=== PATIENT | female | born 1930 | race Caucasian/White ===

== ENCOUNTER 2018-09-18 10:31 | Inpatient (IN) | payer MEDICARE, BC ==
[2018-09-18] VITALS (24 sets, daily range): BP systolic 82–124; BP diastolic 36–81; PULSE 63–88; RESP 14–26; Ht 162.6 cm; Wt 72.7 kg
[~2018-09-18] VITALS: Ht 162.6 cm; Wt 72.7 kg
[~2018-09-18 10:31] MED LIST: ASPI-831 PO; CARV3.1260 PO; CLOP75TA28 PO; DOCU-144 PO; DOCU-211 PO; FOLI0.8T2 PO; GLIP5TAB13 PO; HYDR-3498 PO; INSU100C3 SQ; LANT3I SC; NAPR-985 PO; PANT40TA3 PO; SIMV20TA2 PO; SVL800C PO
--- NOTE | 2018-09-18 10:43 | HPN ---
Date/Time of Note Date/Time of Note DATE: 09/18/18 TIME: 10:43 Interval H&P Admission Note Pt. seen H&P reviewed: No system changes MICHELLE CARD MD Sep 18, 2018 10:43
[2018-09-18] MEDS ORDERED: ATOR20TA38 PO (11:11)
[2018-09-18] MEDS ORDERED: DOCU-144 PO (11:12)
[2018-09-18] MEDS ORDERED: PANT40TA4 PO (11:13)
[2018-09-18] MEDS ORDERED: LACT10SO5 PO (11:13)
[2018-09-18] MEDS ORDERED: OMEG-135 PO (11:13)
[2018-09-18] MEDS ORDERED: INSU100I31 SQ (11:14)
[2018-09-18] MEDS ORDERED: FOLI0.8T2 PO (11:14)
--- NOTE | 2018-09-18 13:35 | CONS ---
Date/Time of Note Date/Time of Note DATE: 09/18/18 TIME: 13:26 Assessment/Plan Assessment/Plan Additional Assessment/Plan 88 yo Female with 1)RLE PVD, Recent Rt Toe gangrene S/p Transection, now with plan for BKA by Dr Card 2)ESRD on HD TTS, S/p HD yesterday Pre-op 3)Hyperkalemia, Resolved now 3.9 4) DM with Renal complication, CKD ESRD 5) Anemia, CKD 6) MBD CKD 7) Chronic HTN 8) CAD, CHF Chronic Pt to proceed with BKA, Defer to Anesthesia and Vascular Sx Plan for HD pending OR and Labs tomorrow, or place back on TTS schedule Currently NPO IF diet restarted , Renal ADA diet Check phos Pending H/HCT, [place] with HD Consultation Date/Type/Reason Admit Date/Time Sep 18, 2018 at 10:31 Date of Consultation: Sep 18, 2018 Type of Consult Renal Reason for Consultation ESRD Requesting Provider: MICHELLE CARD MD Hx of Present Illness 88yo Female with Hx of ESRD on HD TTS, NDC, Hx of CAD/PVD, Severe with hx of Rt toe gangrene s/p transection, now scheduled for BKA RLE, Pt with DM with CKD, ESRD, Chronic HTN, LUE AVG, Anemia Chronic disease. Pt only with complaint of RLE pain. NO fever or chills, NO CP or SOB, NO abdominal Pain.. K earlier >6, however repeat wnl. Planned to proceed with Surgery. Discussed case with DR Card. Nephrology consulted for Management of ESRD. Constitutional: no complaints; No requiring O2 Eyes: no complaints ENT: no complaints Respiratory: no complaints Cardiovascular: no complaints Gastrointestinal: no complaints Genitourinary: no complaints Musculoskeletal: bone/joint pain Skin: no complaints Neurologic: no complaints Endocrine: no complaints Lymphatic: no complaints Psychological: no complaints Immunologic: no complaints Past Medical History Medical History: congestive heart failure, coronary artery disease, diabetes, hypertension, renal disease, other (PVD) Allergies: Coded Allergies: heparin (Unverified Adverse Reaction, Unknown, INDUCED THROMBOCYTOPENIA, 09/18/18) Past Surgical History Past Surgical Hx: other (LUE AVF/AVG) Family History Significant Family History: no pertinent family hx Social History Alcohol Use: none Smoking Status: Never smoker Drug Use: none Exam/Review of Systems Vital Signs Vitals Vital Signs Date Temp Pulse Resp B/P (MAP) Pulse Ox O2 O2 Flow FiO2 Time Delivery Rate 09/18/18 98.1 63 16 120/81 96 Room Air 11:35 (94) Exam Constitutional: alert, oriented; No distress Head: normocephalic, atraumatic Eyes: EOMI, PERRL Neck: No jvd Respiratory: clear to auscultation (ant), normal air movement, crackles/rales; No congested cough, No diminished breath sounds, No labored breathing, No wheezing Cardiovascular: regular rate and rhythm; No edema Gastrointestinal: soft, non-tender; No distended, No rebound or guarding Musculoskeletal: other (RLE PVD) Neurological: AUTOMOTIVE WINDOW TINTER II-XII intact, nl mental status, nl speech; No confused, No lethargic Skin: No rash or lesions, No diaphoresis Additional Comments CXR RPTAT: AA IMPRESSION: Mild cardiomegaly. Mild pulmonary vascular congestion. Left lower lobe atelectasis and left pleural effusion. Calcified aorta consistent with atherosclerotic disease. .Bob Schofield MD, MD Date Time Electronically viewed and signed by .Bob Schofield MD, MD on 09/18/2018 11:40 LABS reviewed K 3.9 Repeat LILLIAN ONEIL MD Sep 18, 2018 13:35
--- NOTE | 2018-09-18 13:47 | PREAC ---
Date/Time of Note Date/Time of Note DATE: 09/18/18 TIME: 13:43 Anesthesia Eval and Record Evaluation Time Pre-Procedure Interview DATE: 09/18/18 TIME: 13:43 Age 88 Sex female NPO: 8 hrs Preoperative diagnosis PVD, athetosclerosis of lower extremity Planned procedure BKA Past Medical History Past Medical History: Includes Cardio: HTN, PPM/AICD Endo: Diabetes Pulm: COPD Renal: ESRD on dialysis, HD last: (yesterday) Surgery & Anesthesia Issues No known issue Meds Anticoagulation: Yes (stopped 2 days ago) Beta Peña within 24 hr: No Reason Beta Peña not given: Pt. not on B-Peña Reported Medications Insulin Degludec (Tresiba Flextouch U-100) 100 Unit/1 Ml Insuln.pen, 16 UNIT SQ QAM 09/18/18 Folic Acid/Vitamin B Comp W-C (Renal Multivitamin Tablet) 0.8 Mg Tablet, 0.8 MG PO DAILY, TAB 09/18/18 Pantoprazole* (Pantoprazole*) 40 Mg Tablet.dr, 40 MG PO AC BREAKFAST, TAB 09/18/18 Lactulose* (Lactulose*) 10 Gm/15 Ml Solution, 10 GM PO QPM PRN for CONSTIPATION, ML 09/18/18 [place]-3 Fatty Acids/Fish Oil (Fish Oil 1,000 mg Capsule) 1 Each Capsule, 1 EACH PO BID, CAP 09/18/18 Docusate Sodium* (Colace*) 100 Mg Capsule, 100 MG PO TID PRN for CONSTIPATION, #60 CAP 09/18/18 Atorvastatin Calcium* (Atorvastatin Calcium*) 20 Mg Tablet, 20 MG PO QHS, #30 TAB 09/18/18 Aspirin (Aspirin) 81 Mg Chew, 81 MG PO DAILY, TAB.CHEW 01/06/16 Sevelamer Hcl* (Renagel*) 800 Mg Tablet, 800 MG PO TID 11/12/11 Discontinued Reported Medications Insulin Glargine* (Lantus*) 100 Unit/Ml Soln, 10 UNIT SC DAILY, #1 VIAL 01/06/16 Hydrocodone Bit-Acetaminophen* ([place]*) 5-325 Mg Tab, 1 TAB PO Q6 PRN for PAIN, TAB 01/06/16 Folic Acid/Vitamin B Comp W-C (Renal Multivitamin Tablet) 0.8 Mg Tablet, 0.8 MG PO, TAB 4/8/16 Naproxen* (Naprosyn*) 500 Mg Tablet, 375 MG PO TID, TAB 01/06/16 Docusate Sodium* (Colace*) 100 Mg Capsule, 100 MG PO DAILY, #30 CAP 01/06/16 Clopidogrel Bisulfate (Clopidogrel) 75 Mg Tablet, 75 MG PO DAILY, #30 TAB 01/06/16 Carvedilol* (Carvedilol*) 3.125 Mg Tablet, 3.125 MG PO BID, #60 TAB 01/06/16 Insulin Aspart (Novolog) 100 U/Ml Cartridge, 0 SQ AC MEALS sliding scale 11/12/11 Docusate Sodium (Doc-Q-Lace) 100 Mg Capsule, 100 MG PO DAILY 11/12/11 Glipizide* (Glipizide*) 5 Mg Tablet, 5 MG PO DAILY 11/12/11 Simvastatin (Simvastatin) 20 Mg Tablet, 20 MG PO HS 11/12/11 Meds reviewed: Yes Allergies Coded Allergies: heparin (Unverified Adverse Reaction, Unknown, INDUCED THROMBOCYTOPENIA, 09/18/18) Allergies Reviewed: Yes Labs/Studies Labs Reviewed: Reviewed by anesthesiologist Result Diagram: 09/18/18 1251 Laboratory Tests 09/18/18 11:20 09/18/18 12:51 test: N/A Studies: ECG (paced), CXR (mild cardiomegally, congestion, atelectasis) Pre-procedure Exam Last vitals Vital Signs Date Temp Pulse Resp B/P (MAP) Pulse Ox O2 O2 Flow FiO2 Time Delivery Rate 09/18/18 98.1 63 16 120/81 96 Room Air 11:35 (94) Airway: Adequate mouth opening Mallampati: Mallampati I Teeth: Abnormal Lung: Normal Heart: Normal ASA Physical Status ASA physical status: 3 Emergency: None Planned Anesthetic General/MAC: Mask, MAC, TIVA Nerve block: Femoral (right), Sciatic (right) Planned Pain Management Single shot nerve block, Parenteral pain med Pre-operative Attestations Prior to commencing anesthesia and surgery, the patient was re-evaluated, there was verification of: *The patient's identity *The results of appropriate recent lab work and preoperative vital signs *The above evaluation not changing prior to induction *Anesthetic plan, risk benefits, alternative and complications discussed with patient/family; questions answered; patient/family understands, accepts and wishes to proceed. WESTLEY BAI MD Sep 18, 2018 13:47
[2018-09-18] MEDS ORDERED: LIDOCAINE 2% (SDV) 5 ML INJ ONE (13:57)
[2018-09-18] MEDS ORDERED: ROPIVACAINE 0.5 % 30 ML VIAL ONE (13:58)
[2018-09-18] MEDS ORDERED: ROPIVACAINE 0.2% 20 ML VIAL ONE (13:58)
[2018-09-18] MEDS ORDERED: LABETALOL HCL 20MG INJ IV PRN (14:00)
[2018-09-18] MEDS ORDERED: ONDANSETRON 4 MG INJ IV PRN ×2 (14:00→16:00)
[2018-09-18] MEDS ORDERED: HYDROmorphONE 1 MG/5 ML IV SYRINGE IV PRN ×3 (14:00)
[2018-09-18] MEDS ORDERED: hydrALAzine 20 MG INJ IV PRN (14:00)
[2018-09-18] MEDS ORDERED: DIPHENHYDRAMINE 50 MG INJ IV PRN (14:00)
[2018-09-18] MEDS ORDERED: FENTAnyl 50 MCG/ML VIAL ONE (14:32)
[2018-09-18] MEDS ORDERED: CEFAZOLIN 1 GM INJ ONE ×2 (14:32)
[2018-09-18] MEDS ORDERED: POLYMYXIN/BACITRACIN 1L IRRIG ONE (14:44)
--- NOTE | 2018-09-18 15:23 | SIPON ---
Date/Time of Note Date/Time of Note DATE: 09/18/18 TIME: 15:22 Operative Report Preoperative Diagnosis R foot gangrene Postoperative Diagnosis same Operation/Procedure Performed R BKA Surgeon see signature line home care assistant none Anesthesia: other Estimated blood loss: 10 - 50 ml's Transfusion Required none Specimen R foot Grafts/Implants none Complications none MICHELLE CARD MD Sep 18, 2018 15:22
--- NOTE | 2018-09-18 15:43 | PAC ---
Date/Time of Note Date/Time of Note DATE: 09/18/18 TIME: 15:43 Post-Anesthesia Notes Post-Anesthesia Note Last documented vital signs Vital Signs Date Temp Pulse Resp B/P (MAP) Pulse Ox O2 O2 Flow FiO2 Time Delivery Rate 09/18/18 98.1 63 16 120/81 96 Room Air 11:35 (94) Activity: WNL Respiratory function: WNL Cardiovascular function: WNL Mental status: Baseline Pain reasonably controlled: Yes Hydration appropriate: Yes Nausea/Vomiting absent: No WESTLEY BAI MD Sep 18, 2018 15:43
--- NOTE | 2018-09-18 15:49 | HP ---
Date/Time of Note Date/Time of Note DATE: 09/18/18 TIME: 15:48 Assessment/Plan VTE Prophylaxis Pharmacological prophylaxis: other Lines/Catheters IV Catheter Type (from Nrs): Peripheral IV Assessment/Plan Hospital Course Objective Physical exam General: Patient is laying in bed and answers questions appropriately Mentation: Patient is alert and oriented 4, Head: Normocephalic atraumatic Eyes: EOMI, pupils reactive to light Neck: Supple, nontender, midline Respiratory: Clear to auscultation bilaterally Cardiovascular: regular rate, no obvious murmurs Gastrointestinal: non-tender to palpation, bowel sounds heard. Neurological: Moves all extremities spontaneously Musculoskeletal: Right BKA Assessment and plan Peripheral arterial disease -Status post right BKA -Monitor closely, vascular surgery to manage Insulin-dependent diabetes mellitus -Continue insulin while in house Peripheral arterial disease -Vascular surgery to manage -Continue aspirin starting tomorrow End-stage renal disease -Nephrology consulted, HD as needed Disposition -Monitor overnight, DC when okay with vascular surgery HPI/ROS Admit Date/Time Admit Date/Time Sep 18, 2018 at 10:31 Hx of Present Illness Patient is a 88-year-old female with past medical history significant for end-stage renal disease on hemodialysis, diabetes mellitus, peripheral arterial disease, as well as history of gangrene of the right foot who presents to [facility] for elective right BKA. Patient had uneventful surgery and is doing well we monitor overnight. Patient currently is mildly dr owsy due to anesthesia however is alert and oriented and able to answer simple questions. Patient denies any chest pain, shortness of breath, abdominal pain, headache, nausea, vomiting. Patient does elicit some pain at the surgical site but it is not too uncomfortable ROS Eyes: no complaints ENT: no complaints Respiratory: no complaints Cardiovascular: no complaints Gastrointestinal: no complaints Genitourinary: no complaints Musculoskeletal: bone/joint pain Skin: no complaints Neurologic: no complaints Lymphatic: no complaints Psychological: no complaints Immunologic: no complaints PMH/Family/Social Past Medical History Medical History: congestive heart failure, coronary artery disease, diabetes, hypertension, renal disease, other (PVD) Coded Allergies: heparin (Unverified Adverse Reaction, Unknown, INDUCED THROMBOCYTOPENIA, 09/18/18) Past Surgical History Past Surgical Hx: other (LUE AVF/AVG) Family History Significant Family History: no pertinent family hx Social History Alcohol Use: none Smoking Status: Never smoker Drug Use: none Exam/Review of Systems Vital Signs Vitals Vital Signs Date Temp Pulse Resp B/P (MAP) Pulse Ox O2 O2 Flow FiO2 Time Delivery Rate 09/18/18 98.1 63 16 120/81 96 Room Air 11:35 (94) Medications Medications Current Medications Hydromorphone HCl (Dilaudid) 0.2 mg PACU PRN IV MILD PAIN LEVEL 1-3; Start 09/18/18 at 14:00; Stop 09/18/18 at 18:00 Hydromorphone HCl (Dilaudid) 0.4 mg PACU PRN IV MODERATE PAIN LEVEL 4-6; Start 09/18/18 at 14:00; Stop 09/18/18 at 18:00 Hydromorphone HCl (Dilaudid) 0.6 mg PACU PRN IV SEVERE PAIN LEVEL 7-10; Start 09/18/18 at 14:00; Stop 09/18/18 at 18:00 Ondansetron HCl (Zofran Inj) 4 mg PACU ORDER PRN IV NAUSEA AND/OR VOMITING; Start 09/18/18 at 14:00; Stop 09/18/18 at 18:00 Labetalol HCl (Labetalol) 5 mg PACU ORDER PRN IV ELEVATED BLOOD PRESSURE; Start 09/18/18 at 14:00; Stop 09/18/18 at 18:00 Hydralazine HCl (Apresoline) 5 mg PACU ORDER PRN IV ELEVATED BLOOD PRESSURE; St art 09/18/18 at 14:00; Stop 09/18/18 at 18:00 Diphenhydramine HCl (Benadryl) 25 mg PACU ORDER PRN IV PRURITUS; Start 09/18/18 at 14:00; Stop 09/18/18 at 18:00 IV Flush (NS 3 ml) 3 ml PER PROTOCOL IV ; Start 09/18/18 at 16:00 Ondansetron HCl (Zofran Inj) 4 mg Q6H PRN IV NAUSEA AND/OR VOMITING; Start 09/18/18 at 16:00 Acetaminophen (Tylenol Tab) 650 mg Q6H PRN PO PAIN LEVEL 1-3 OR FEVER; Start 09/18/18 at 16:00 Acetaminophen/ Hydrocodone Bitart ([place] (5/325)) 1 tab Q6H PRN PO PAIN LEVEL 4-6; Start 09/18/18 at 16:00 Morphine Sulfate (morphine) 2 mg Q4H PRN IV PAIN LEVEL 7-10; Start 09/18/18 at 16:00 Atorvastatin Calcium (Lipitor) 20 mg QHS PO ; Start 09/18/18 at 21:00; Status UNV Docusate Sodium (Colace) 100 mg TID PRN PO CONSTIPATION; Start 09/18/18 at 16:00; Status UNV Pantoprazole (Protonix Tab) 40 mg AC BREAKFAST PO ; Start 09/19/18 at 07:00; Status UNV Sevelamer HCl (Renagel) 800 mg TID PO ; Start 09/18/18 at 21:00; Status UNV Results Result Diagram: 09/18/18 1251 Results 24 hrs Laboratory Tests Test 09/18/18 11:20 09/18/18 12:51 09/18/18 15:23 White Blood Count Pending Red Blood Count Pending Hemoglobin Pending Hematocrit Pending Mean Corpuscular Volume Pending Mean Corpuscular Hemoglobin Pending Mean Corpuscular Pending Hemoglobin Concent Red Cell Distribution Width Pending Platelet Count Pending Mean Platelet Volume Pending Sodium Level 140 Potassium Level 6.2 *H 3.9 # Chloride Level 105 Carbon Dioxide Level 27 Anion Gap 8 Blood Urea Nitrogen 10 Creatinine 2.08 H Est Glomerular Filtrat Rate mL/min Glucose Level 88 Bedside Glucose 89 84 Calcium Level 8.6 LEA MORALES Sep 18, 2018 15:49
--- NOTE | 2018-09-18 15:58 | NUR ---
RECEIVED PATIENT FROM OR VIA [facility] POST RIGHT BKA UNDER GENERAL ANESTHESIA. PATIENT AROUSABLE ON ARRIVAL. ON O2 6L VIA FACE MASK SATURATING 100%. SR BP STABLE .DENIES PAIN .DRESSING TO RIGHT BKA INTACT.BLOOD SUGAR CHECK 84 . Addendum: 09/18/18 at 1620 by HIRAM CHAMBERLAIN RN CORRECTION PATIENT EKG 100% V PACE .NOT SR.
[2018-09-18] MEDS ORDERED: HYDROCODONE/APAP (5/325) TAB PO PRN (16:00)
[2018-09-18] MEDS ORDERED: GLUCOSE GEL 15 GRAM TUBE PO PRN (16:00)
[2018-09-18] MEDS ORDERED: morphine 2 MG INJ IV PRN (16:00)
[2018-09-18] MEDS ORDERED: GLUCOSE GEL 15 GRAM TUBE BUCCAL PRN (16:00)
[2018-09-18] MEDS ORDERED: DOCUSATE SODIUM 100 MG CAP PO PRN (16:00)
[2018-09-18] MEDS ORDERED: NACL 0.9% 3 ML SYG IV SCH (16:00)
[2018-09-18] MEDS ORDERED: DEXTROSE 50% 50 ML SYRINGE IV PRN ×2 (16:00)
[2018-09-18] MEDS ORDERED: ACETAMINOPHEN 325 MG TAB PO PRN (16:00)
--- NOTE | 2018-09-18 16:18 | NUR ---
PATIENT NOW FULLY AWAKE JOANN PAIN .DAUGHTER AT BEDSIDE ON ROOM AIR SATURATING 94%. REPOSITIONED TO LEFT SIDE. AV SHUNT TO LEFT ARM PALPABLE.
--- NOTE | 2018-09-18 16:34 | NUR ---
RESTING COMFORTABLY .AWAITING FOR ROOM AVAILABILITY.
--- NOTE | 2018-09-18 17:12 | OPR ---
DATE OF OPERATION: 09/18/2018 PREOPERATIVE DIAGNOSIS: Right foot gangrene. POSTOPERATIVE DIAGNOSIS: Right foot gangrene. PROCEDURE PERFORMED: Right below-knee amputation. SURGEON: Michelle Vanessa MD ANESTHESIA: Regional block. ESTIMATED BLOOD LOSS: 50 mL. COMPLICATIONS: There are no intraprocedural complications. INDICATIONS: This is an 88-year-old woman with diabetes, hypertension, end-stage renal disease, aaron pheral arterial disease. She had a TMA recently that dehisced and this is just gangrenous. We broug ht her in today for a right below knee amputation. She has a palpable popliteal pulse and it should heal well at this level. DESCRIPTION OF PROCEDURE: The patient was brought to the operating room and placed on the table in s upine position. After right femoral and popliteal blocks were placed by anesthesia, the right leg wa s prepped and draped in the usual sterile fashion. I began by marking flaps on the lower leg and mad e an anterior flap 11 cm in length, posterior flap 13 cm in length and incised the skin. Using elect rocautery, I divided the soft tissue at the lower edge of the superior flap and then came across the anterior tibial and peroneal neurovascular bundles, ligated with 2-0 silk ties and divided them. The posterior tibial was occluded. Once I had exposed the tibia and fibula, I transected the fibula hig h up using a bone cutter. The tibia was transected using a bone saw. I then jackknifed the leg and used the long sharp knife to cut the soft tissue away from the backside of the tibia and fibula until I reached the end of the posterior flap and I came across that sharply and then got hemostasis using electrocautery and surgical clips and some 2-0 Vicryl sutures. I then reapproximated the 2 flaps us ing interrupted 2-0 Vicryl sutures in interrupted fashion. I brought the fascia together to cover bone and I then closed the skin incision using surgical jean. Sterile dressing was applied. e patient was transferred to the recovery room in stable condition. She tolerated the procedure well without any complications. Dictated By: MICHELLE NORRIS/SHAAN Conf#: [id number] DID#: [id number] CC: TRIP STEVENS MD; PETE LOZANO DPM; LILLIAN ONEIL MD; DAVE ASHLEY MD;*[facility]*
[2018-09-18] MEDS: INSULIN ASPART [NOVOLOG] 3 ML PEN SC SCH ×2 (18:00→22:51)
--- NOTE | 2018-09-18 18:05 | NUR ---
TRANSFERRED PATIENT TO [facility] VIA HEATHER IN STABLE CONDITION .REPORT GIVEN TO NAVA MORENO Addendum: 09/18/18 at 1807 by HIRAM CHAMBERLAIN RN PLS DISREGARD ABOVE NOTES ERROR .MEANT FOR ANOTHER PATIENT
--- NOTE | 2018-09-18 18:31 | NUR ---
TRANSFERRED TO [facility] VIA RDRUMMOND IN STABLE CONDITION .DRESSING TO RIGHT BKA DRY AND INTACT .REPORT GIVEN TO JOSI MORENO .FAMILY INFORMED.
--- NOTE | 2018-09-18 18:45 | NUR ---
Receiving note: Pt received from PACU, report received from Lul. Pt received with fist sized moist declan red drainage noted on dressing. Drainage area circled with a black marker to note size at that time. Dressing reinforced as per Dr. Vanessa order. Dr. Vanessa aware of drainage at time of pt arrival. Orders received to reinforce dressing. Flaky skin on buttocks and sacrum noted. Healed full thickness noted on inner R buttocks. Cluster rash also noted in this area. Allevyn placed on sacrum and diaper removed. Pictures taken and wound consult placed. Endorsed to night nurse. BP in PACU was 124/45. BP upon unit arrival was 98/51. Pt O2 sat >94% on 2L. Pt resting comfortably in bed, denies pain bed alarm on. Family present at bedside.
[2018-09-18] MEDS ORDERED: SEVELAMER 800 MG TAB PO SCH (21:00)
[2018-09-18] MEDS: ATORVASTATIN 20 MG TAB PO SCH (21:21)
[2018-09-18] MEDS: SEVELAMER CARBONATE 800 MG TABLET PO SCH (21:45)
[2018-09-18] MEDS: ACCU-CHEK XX SCH (22:53)
--- NOTE | 2018-09-19 05:32 | NUR ---
EOSS PATIENT RESTED OFF AND ON. MEDICATED FOR PAIN X 1, AND WAS RELIEVED. NO S/S OF DISTRESS NOTED. REPOSITIONED Q 2 AND PRN TOLERATED. DRESSING TO RIGHT LEG NOTED WITH BLOOD STAIN THIS MORNING AROUND 0330. CIRCLED AND WILL CONTINUE TO MONITOR. OF THIS TIME. NO MORE DRAINAGE NOTED. ELEVATED ON PILLOW. NO HYPERGLYCEMIA OR HYPOGLYCEMIA NOTED. EDUCATED ON GLUCOSE TESTING TIMES, AND HS SNACK. OFFERED PATIENT A SNACK AT TIME OF GLUCOSE CHECK, BUT PATIENT STATED "MAYBE A LITTLE LATER". WHEN I RETURNED A LITTLE LATER PATIENT WAS ASLEEP. EASY TO WAKE UP BUT CONTINUED TO DECLINED SNACK. AROUND 0000 PATIENT NOTED TO BE NAUSEATED. OFFERED ANTI NAUSEA MEDICATION. PATIENT DECLINED. OBSERVED EMESIS OF 50 ML WITH LOTS OF AIR. STATED THAT SHE "FELT BETTER". PATIENT ALSO NOTED TO BE SWEATING AT THIS TIME. BLOOD GLUCOSE RECHECKED AT THIS TIME. WNL. VITALS WITHIN BASELINE. NO TEMPERATURE OBSERVED. EXTRA BLANKETS REMOVED. KEPT CLEAN AND DRY. CALL LIGHT IN EASY REACH. WILL CONTINUE TO MONITOR.
[2018-09-19] MEDS: PANTOPRAZOLE (EC) 40 MG TAB PO SCH (06:08)
[2018-09-19 07:40] VITALS: BP 88/44; PULSE 80; RESP 16
[2018-09-19 08:31] VITALS: BP 89/44; PULSE 81; RESP 16
[2018-09-19] MEDS: INSULIN GLARGINE [LANTus] (100 UNITS/ML) SYG SC SCH (08:58)
[2018-09-19] MEDS: ASPIRIN 81 MG TAB PO SCH (09:02)
[2018-09-19] MEDS: SEVELAMER CARBONATE 800 MG TABLET PO SCH ×3 (09:03→22:03)
[2018-09-19] MEDS: INSULIN ASPART [NOVOLOG] 3 ML PEN SC SCH ×4 (09:05→21:00)
--- NOTE | 2018-09-19 10:47 | NUR ---
WOUND CONSULT: 88 year old female s/p right BKA by Dr. Vanessa on 09/18/18. History of end-stage renal disease on hemodialysis, diabetes mellitus, peripheral arterial disease, gangrene of the right foot per medical history. WBC 6.7. H&H 9.6/32.9. Plt 103. Albumin 2.5. Patient awake, alert. Nasal cannula. Moderate assist to turn. Incontinent. ASSESSMENT: - Right BKA wrap with Kerlix. Dressing intact with bleeding drainage. - Left heel dry peeling skin. - Left groin puncture wound possible from angio procedure. 0.2cmx0.2cmx0.9cm. Unable to assess base of wound. Periwound intact. Small serosanguineous drainage. No odor. - Abdominal fold moisture related skin damage. - Sacrococcyx intact deep tissue pressure injury. Condition present on admission. [id number]. Maroon discoloration. No drainage. No odor. There is a pinkish resurfaced scar tissue area to the Right buttock area. Possible healing full thickness pressure injury. RECOMMENDATIONS: - Left heel: Apply moisturizer daily. Float heel off bed with pillow. - Left groin puncture wound: Cleanse with normal saline. Pat dry. Cover wound with Silver Alginate (Melgisorb) dressing. and Cover with foam border dressing. Change every other day. - Abdominal fold: Cleanse with foam cleanser. Pat dry. Dust with Nystatin powder BID. - Sacrococcyx DTPI: Cleanse with normal saline. Pat dry. Apply Venelex ointment BID. Then, cover with foam border dressing. - Pericare with barrier cream for each incontinent episode. - Low air loss surface. - Reposition every 2 hours. - Earmates foam furniture technician for nasal cannula for ear protection. Assessed patient with RNIvy. Discussed plan of care with RN. RN to obtwin wound care recommendations from . Beverley Mahan BSN RN CWOCN
--- NOTE | 2018-09-19 12:00 | NUR ---
Dressing change done as per MD order. Xerform on incision site. Rach in place. Dry gauze, kerlix wrap, and SENTHIL wrap applied. Pain meds given. Pt. tolerated dressing change well.
[2018-09-19] MEDS: morphine LIQ (10 MG/5 ML) CUP PO PRN ×2 (12:41→17:51)
--- NOTE | 2018-09-19 12:49 | PN ---
Date/Time of Note Date/Time of Note DATE: 09/19/18 TIME: 12:46 Assessment/Plan Lines/Catheters IV Catheter Type (from Nrsg): Saline Lock Assessment/Plan Assessment/Plan Doing well s/p R BKA HD per Dr. Albert I asked the nurse to rewrap the stump and place an SENTHIL wrap OK for d/c from my standpoint Followup with me in the APC in one week, dressing doesn't need changed until then Subjective 24 Hr Interval Summary No pain, eating OK. No CP / SOB. Exam/Review of Systems Vital Signs Vitals Vital Signs Date Temp Pulse Resp B/P (MAP) Pulse Ox O2 O2 Flow FiO2 Time Delivery Rate 09/19/18 98.2 81 16 89/44 (59) 95 08:31 09/18/18 Nasal 2.0 19:43 Cannula Intake and Output 09/18/18 09/18/18 09/19/18 1515:00 23:00 07:00 IntakeIntake Total 220 ml OutputOutput Total 20 ml BalanceBalance 200 ml Exam Free Text/Dictation R BKA stump clean and dry, minor skin edge oozing overnight - stopped, flaps are warm and no signs of ischemia or infection L arm AVF with good thrill Results Result Diagram: 09/19/18 0429 09/19/18 0429 MICHELLE CARD MD Sep 19, 2018 12:49
[2018-09-19] MEDS: POLYETHYLENE GLYCOL 17 GM PACKET PO SCH ×2 (13:00→21:00)
[2018-09-19] MEDS ORDERED: BISACODYL 10 MG SUPP PR PRN (13:00)
[2018-09-19] MEDS ORDERED: BISACODYL (EC) 5 MG TAB PO ONE (13:00)
--- NOTE | 2018-09-19 13:00 | NUR ---
Tone: Dialysis called and confirmed appointment for tomorrow. Pt. and family made aware. Confirmation # [id number].
--- NOTE | 2018-09-19 13:01 | CONS ---
Date/Time of Note Date/Time of Note DATE: 09/19/18 TIME: 12:59 Assessment/Plan Assessment/Plan Chief Complaint/Hosp Course \88 yo Female with 1)RLE PVD, Recent Rt Toe gangrene S/p Transection, S/p BKA POD #1 2)ESRD on HD TTS, S/p HD yesterday Pre-op 3)Hyperkalemia, Resolved now 3.9 4) DM with Renal complication, CKD ESRD 5) Anemia, CKD 6) MBD CKD 7) Chronic HTN 8) CAD, CHF Chronic HD plan for tomorrow Resume TTS schedule EPO with HD tomorrow. Consultation Date/Type/Reason Admit Date/Time Sep 18, 2018 at 10:31 Initial Consult Date 09/18/18 Type of Consult Renal Requesting Provider: MICHELLE CARD MD 24 HR Interval Summary Free Text/Dictation S/p OR, S/p BKA, Pain improved, Last HD saturday. Constitutional: requiring O2 Exam/Review of Systems Vital Signs Vitals Vital Signs Date Temp Pulse Resp B/P (MAP) Pulse Ox O2 O2 Flow FiO2 Time Delivery Rate 09/19/18 98.2 81 16 89/44 (59) 95 08:31 09/18/18 Nasal 2.0 19:43 Cannula Intake and Output 09/18/18 09/18/18 09/19/18 1515:00 23:00 07:00 IntakeIntake Total 220 ml OutputOutput Total 20 ml BalanceBalance 200 ml Exam Constitutional: No distress Head: atraumatic Eyes: nl conjunctiva, EOMI Neck: No jvd Respiratory: No diminished breath sounds, No labored breathing Cardiovascular: regular rate and rhythm; No edema Gastrointestinal: soft, non-tender; No mass, No rebound or guarding Musculoskeletal: other (BKA LEFT) Extremities: No pitting pedal edema Neurological: No lethargic Skin: No diaphoresis LILLIAN ONEIL MD Sep 19, 2018 13:01
--- NOTE | 2018-09-19 14:05 | PN ---
Date/Time of Note Date/Time of Note DATE: 09/19/18 TIME: 14:03 Assessment/Plan VTE Prophylaxis Risk score (from Ns)>0 risk: 9 SCD applied (from Ns): Yes SCD contraindicated: bilateral LE trauma, bilateral amputee Pharmacological prophylaxis: NA/contraindicated Pharm contraindication: surgical contra Lines/Catheters [facility] Saline Lock Assessment/Plan Hospital Course Assessment and plan 1. Right foot gangrene status post BKA, stable treat pain 2. Chronic PAD 3. ESRD dialysis Saturday 4. Failure to thrive may need sniff continue wound care; PT if okay with vascular 5. Diabetes 6. Hypertension 7. Anemia 8. Constipation 9. Thrombocytopenia 10. Pacemaker? 11. Coronary artery disease? 12. CHF? 13. Sm; check echo Subjective: Mild to moderate pain. No dyspnea chest pain. Spirits okay. Objective: Vital signs stable bundle branch block? Physical exam No pallor/ jvd adenopathy Reg +sm' no r/g Clear Benign no abdominal bruits Rt BKA status stable; Diabetic neuropathy? Exam/Review of Systems Vital Signs Vitals Vital Signs Date Temp Pulse Resp B/P (MAP) Pulse Ox O2 O2 Flow FiO2 Time Delivery Rate 09/19/18 98.2 81 16 89/44 (59) 95 08:31 09/18/18 Nasal 2.0 19:43 Cannula Intake and Output 09/18/18 09/18/18 09/19/18 1515:00 23:00 07:00 IntakeIntake Total 220 ml OutputOutput Total 20 ml BalanceBalance 200 ml LOU RAMÍREZ MD Sep 19, 2018 14:05
[2018-09-19 15:02] VITALS: BP 91/45; PULSE 76; RESP 16
--- NOTE | 2018-09-19 15:33 | NUR ---
Nutrition consult: Pt's family noted that pt unable to eat her meal today because it was too solid. Pt currently on renal, carb controlled, regular texture. Pt is missing teeth and having trouble chewing her food. Pt liked the cream of wheat/oatmeal in the morning but wasn't able to eat/chew any other foods. Pt family requested downgrading diet to puree. Will continue to monitor.
--- NOTE | 2018-09-19 19:00 | NUR ---
EOSS: Pt. AAAo x 4. [place] speaking. Vitals stable. Family at bedside. Accucheks done and insulin coverage given. Morphine given for pain. Amputated stump - dressing change done and skin intact. Pt. has no other concerns at this time. Bed in low position, call light within reach. Plan of care endorsed to next shift.
[2018-09-19 19:20] VITALS: BP 95/46; PULSE 73; RESP 20
[2018-09-19] MEDS: ATORVASTATIN 20 MG TAB PO SCH (22:02)
[2018-09-19] MEDS: GABAPENTIN 100 MG CAP PO SCH (22:02)
[2018-09-19] MEDS: SENNA/DOCUSATE NA (8.6MG/50MG) TAB PO SCH (22:03)
[2018-09-19] MEDS: HYDROCODONE/APAP (10/325) TAB PO PRN (22:09)
[2018-09-20] MEDS: ACCU-CHEK XX SCH (02:00)
[2018-09-20 02:20] VITALS: BP 107/51; PULSE 65
[2018-09-20] MEDS: INSULIN ASPART [NOVOLOG] 3 ML PEN SC SCH ×4 (07:50→21:00)
[2018-09-20 07:57] VITALS: BP 88/49; PULSE 71; RESP 16
[2018-09-20] MEDS: PANTOPRAZOLE (EC) 40 MG TAB PO SCH (08:23)
[2018-09-20] MEDS: ASPIRIN 81 MG TAB PO SCH (08:23)
[2018-09-20] MEDS: SEVELAMER CARBONATE 800 MG TABLET PO SCH ×3 (08:23→21:00)
[2018-09-20] MEDS: POLYETHYLENE GLYCOL 17 GM PACKET PO SCH ×2 (08:23→21:00)
[2018-09-20] MEDS: INSULIN GLARGINE [LANTus] (100 UNITS/ML) SYG SC SCH (08:27)
--- NOTE | 2018-09-20 08:45 | NUR ---
PT Evaluation attempted. However pt BP 91/52 supine in bed and RN requested that PT hold until SBP over 100. Will reattempt later as PT schedule and pt's BP allows.
[2018-09-20 09:00] VITALS: BP 91/52
[2018-09-20] MEDS: NYSTATIN 30 GM POWDER BTL TOP SCH ×2 (14:00→21:00)
[2018-09-20] MEDS: BALSAM PERU/CASTOR OIL 60 GM TUBE TOP SCH ×2 (14:00→21:00)
--- NOTE | 2018-09-20 14:00 | NUR ---
PT Evaluation attempted again. However pt refused, with family at bedside, despite max encouragement from the PT. Collected subjective information: family reports pt has not walked for 2 months following a fall and resulting back and hip pain. Educated the family on importance of PT and positioning for RLE. BP supine: 96/46 at start, 81/43 at end of attempted eval.
[2018-09-20 15:22] VITALS: BP 109/54; PULSE 67; RESP 16
[2018-09-20] MEDS: HYDROCODONE/APAP (10/325) TAB PO PRN (15:50)
--- NOTE | 2018-09-20 16:41 | PN ---
Date/Time of Note Date/Time of Note DATE: 09/20/18 TIME: 16:38 Assessment/Plan VTE Prophylaxis Risk score (from Nsg)>0 risk: 8 SCD applied (from Ns): Yes SCD contraindicated: bilateral LE trauma Pharmacological prophylaxis: LMWH Lines/Catheters IV Catheter Type (from Nrs): Saline Lock Assessment/Plan Hospital Course Assessment and plan 1. Right foot gangrene, status post BKA, stable treat pain 2. Chronic PAD, stable restart aspirin if no bleeding 3. ESRD dialysis Saturday 4. Failure to thrive may need snf'; continue wound care; PT if ok with vascular 5. Diabetes 6. Hypertension 7. Anemia 8. Constipation 9. Thrombocytopenia 10. Pacemaker? 11. Coronary artery disease? 12. CHF? 13. Sm; check echo S: 09/19 mild to moderate pain. No dyspnea chest pain. Spirits okay. 09/20: Mod pain, unable to ambulate with PT. I reinforced the need to medicate prior to PT. Unfortunately the patient has not walked in 2 mnths. High risk of further debility/ decline in health. may need snf. high risk of ulcers pneumonia and functional quadriplegia, recommend advanced care planning be reevaluated/consider palliative care. O: Vital signs stable, bbb Physical exam No pallor/ jvd Reg +sm' no r/g Clear Benign nontender nondistended no RRG; no abdominal bruits Rt BKA status stable; Diabetic neuropathy? Exam/Review of Systems Vital Signs Vitals Vital Signs Date Temp Pulse Resp B/P (MAP) Pulse Ox O2 O2 Flow FiO2 Time Delivery Rate 09/20/18 97.8 67 16 109/54 100 15:22 (72) 09/20/18 Nasal 2.0 08:00 Cannula Intake and Output 09/19/18 09/19/18 09/20/18 1515:00 23:00 07:00 IntakeIntake Total 300 ml 200 ml BalanceBalance 300 ml 200 ml LOU RAMÍREZ MD Sep 20, 2018 16:41
--- NOTE | 2018-09-20 17:26 | RADRPT ---
Echocardiogram Report Patient Name: DARIAN MCCALL Gender: Female Date: 1930 Study Date: 19-Sep-2018 Event Marketing Coordinator: Luis Eduardo [facility] Location: 429-A Ref. Physician: LOU RAMÍREZ Quality: Adequate Procedures: Transthoracic echocardiogram with complete 2D, M-Mode, and doppler examination. Indications: Systolic murmur. 2D/M Mode Doppler Measurement Value Normal Ranges Measurement Value Normal Ranges LVIDd 2D 3.5 3.5 - 5.6 cm ROCKY Vmax 1.1 cm2 LVIDs 2D 2.3 2.1 - 4.1 cm ROCKY VTI 1.2 cm2 FS 2D 33.9 % AV Mean Ren 1.8 m/sec LVPWd 2D 1.1 0.6 - 1.1 cm AV Mean PG 15.0 mmHg IVSd 2D 1.8 0.6 - 1.1 cm AV Peak Ren 2.5 m/sec IVS/LVPW 2D 1.7 AV Peak PG 25.0 mmHg AoR Diam 2D 2.0 2.0 - 3.7 cm AV VTI 56.3 cm LA/Ao 2D 2 0 - 1 LVOT Peak Ren 0.9 m/sec EDV 2D 41.1 cm3 LVOT Peak PG 3.0 mmHg ESV 2D 11.9 cm3 MV E Peak Ren 1.2 m/sec LA Dimen 2D 4.3 2.3 - 4.0 cm MV A Peak Ren 1.8 m/sec LVOT Area 3.1 cm2 MV E/A 0.7 MV Peak Ren 2.3 m/sec MV Peak PG 20.0 mmHg MV Mean Ren 1.3 m/sec MV Mean PG 8.0 mmHg MV Decel Time 268 msec MV E/A 0.7 MV VTI 67.4 cm MVA VTI 1.0 cm TR Peak Ren 4.5 m/sec TR Peak PG 82.0 mmHg RVSP 85.0 mmHg Findings Left Ventricle: Normal left ventricular systolic function. Normal left ventricular cavity size. Moderate concentric left ventricular hypertrophy. Ejection fraction is visually estimated at 55 %. Tissue Doppler/Mitral Doppler indices are consistent with impaired relaxation (Stage I diastolic dysfunction). Right Ventricle: Normal right ventricular systolic function. Moderate enlargement of right ventricle. Left Atrium: There is moderate enlargement of left atrium. Right Atrium: The right atrium is normal in size. Mitral Valve: Moderate mitral leaflet calcification. Moderate mitral annular calcification. Mild mitral valve regurgitation. Moderate mitral stenosis. Mitral valve Max Velocity 2.25 m/sec. MaxPG 20.00 mmHg. MeanPG 8.00 mmHg. Aortic Valve: Mild to moderate aortic stenosis. Aortic valve Max velocity 2.48 m/sec. Max PG 25.00 mmHg. Mean PG 15.00 mmHg. Aortic valve area 1.22 cm2. Aortic cusps appear moderately calcified. Trace aortic valve regurgitation. Tricuspid Valve: Normal appearance of the tricuspid valve. Estimated peak PA systolic pressure 85 mmHg. There is mild to moderate tricuspid regurgitation. Pulmonic Valve: Pulmonic valve not well visualized. There is mild pulmonic regurgitation. Pericardium: Normal pericardium with no significant pericardial effusion. Left pleural effusion seen. Aorta: Normal aortic root. IVC: Normal size and normal respiratory collapse consistent with normal right atrial pressure. Conclusions The left ventricle is normal in size and systolic function. Estimated left ventricular ejection fraction of 55%. Moderate concentric left ventricular hypertrophy. Grade 1 diastolic dysfunction. Moderate mitral stenosis. Mild to moderate aortic stenosis. Moderate left atrial enlargement. Severe pulmonary hypertension with estimated RVSP of 85 mmHg. Electronically Signed By: Phil Graves 20-Sep-2018 17:25:38 -0800 Patient Name: DARIAN MCCALL Study Date: 19-Sep-2018 [id number]
[2018-09-20] MEDS: GLUCAGON 1 MG INJ IM PRN (18:48)
--- NOTE | 2018-09-20 19:03 | CONS ---
Date/Time of Note Date/Time of Note DATE: 09/20/18 TIME: 19:01 Assessment/Plan Assessment/Plan Chief Complaint/Hosp Course 88 yo Female with 1)RLE PVD, Recent Rt Toe gangrene S/p Transection, S/p BKA POD #1 2)ESRD on HD TTS, S/p HD yesterday Pre-op 3)Hyperkalemia, Resolved now 3.9 4) DM with Renal complication, CKD ESRD 5) Anemia, CKD 6) MBD CKD 7) Chronic HTN 8) CAD, CHF Chronic Held HD today due to BP HD plan for tomorrow BP improved Repeat labs in am monitor [facility] Consultation Date/Type/Reason Admit Date/Time Sep 18, 2018 at 10:31 Initial Consult Date 09/18/18 Type of Consult Renal Requesting Provider: MICHELLE CARD MD 24 HR Interval Summary Free Text/Dictation Low BP, HD held. Exam/Review of Systems Vital Signs Vitals Vital Signs Date Temp Pulse Resp B/P (MAP) Pulse Ox O2 O2 Flow FiO2 Time Delivery Rate 09/20/18 97.8 67 16 109/54 100 15:22 (72) 09/20/18 Nasal 2.0 08:00 Cannula Intake and Output 09/19/18 09/19/18 09/20/18 1515:00 23:00 07:00 IntakeIntake Total 300 ml 200 ml BalanceBalance 300 ml 200 ml Exam Constitutional: frail; No distress Eyes: EOMI Neck: No jvd Respiratory: crackles/rales; No diminished breath sounds, No labored breathing Cardiovascular: regular rate and rhythm; No edema Gastrointestinal: soft, non-tender Musculoskeletal: other (BKA) Neurological: No lethargic LILLIAN ONEIL MD Sep 20, 2018 19:03
[2018-09-20 19:20] VITALS: BP 106/51; PULSE 71; RESP 20
[2018-09-20] MEDS: GLUCOSE GEL 15 GRAM TUBE PO PRN (19:20)
--- NOTE | 2018-09-20 20:07 | NUR ---
END OF SHIFT NOTE: Patient had low bp in the AM; I paged hospitalist and ordered to give NS bolus 500ml; clarified order with cover assembler who stated to hold bolus. He stated to re-check BP; I had already reposition patient prior and had CREDIT ANALYST re-check; and reported new BP to cover assembler with no order to intervene. Patient was slightly lethargic throughout shift with improvement in the afternoon, but able to verbalize her needs. Patient accuchecked B 86, L 85, D 56. I started hypoglycemic management. I attempted oral route, but out of stock of oral gel; placed call to pharmacy. Rechecked BS 51; Assessed IV site and was not functional; Shellie fischer RN aware and attempted IV, but unsuccessful. I gave IM Glucagon and rechecked BS 60; I attempted to give another dose, but out of stock in [employer]; Nabeel MORENO night charge went to pharmacy and we gave one dose glucose gel. Rechecked sugar BS 70; nightshift RN aware of situation and will continue to address blood sugar level; I paged and tried calling primary MD with no response, paged hospitalist nahed able to get a response, but no new orders. Patient dressing on amputation site in intact with no drainage and no orders to perform wound care. Shellie Fischer RN facilitated new wound care orders per wound care nurse. Patient medicated for pain with norco 10/325. Patient transfer to low air loss mattress. No other events noted.
[2018-09-20] MEDS: SENNA/DOCUSATE NA (8.6MG/50MG) TAB PO SCH (21:00)
[2018-09-20] MEDS: ATORVASTATIN 20 MG TAB PO SCH (21:00)
[2018-09-20] MEDS: GABAPENTIN 100 MG CAP PO SCH (21:00)
--- NOTE | 2018-09-20 23:08 | NUR ---
Rk Dialysis Confirmation Number [id number]
[2018-09-21] VITALS (18 sets, daily range): BP systolic 99–131; BP diastolic 46–67; PULSE 62–66; RESP 18–20
[2018-09-21] MEDS: HYDROCODONE/APAP (10/325) TAB PO PRN ×2 (00:01→08:45)
[2018-09-21] MEDS: ACCU-CHEK XX SCH (00:53)
--- NOTE | 2018-09-21 06:44 | NUR ---
Shift Summary Pt's hypoglycemia resolved during shift after patient was given glucose gel and apple juice. Pt treated once for pain in right leg. Pt refused all evening medications. Will endorse care to next shift.
--- NOTE | 2018-09-21 07:30 | NUR ---
PT RECEIVED WITHOUT ANY IV ACCESS. TOLD BY [facility] THAT THERE IS NO IV ACCESS. SHREDDED FILLER MACHINE WRAPPER LAYER MARTELL FROM THE [facility] SAID: NOBODY COULD GET AN IV ACCESS ON THE PT, EVEN TECHNOLOGY INFUSION SPECIALIST.
[2018-09-21] MEDS: INSULIN ASPART [NOVOLOG] 3 ML PEN SC SCH ×4 (07:50→20:59)
[2018-09-21] MEDS ORDERED: INSULIN GLARGINE [LANTus] (100 UNITS/ML) SYG SC SCH (08:00)
--- NOTE | 2018-09-21 08:00 | NUR ---
PT RECEIVED IN BED. A,A,OX3. NOT IN ANY ACUTE DISTRESS. DENIES ANY PAIN AT THIS TIME. THE PLAN OF CARE DISCUSSED W/ THE PT, VERBALIZED UNDERSTANDING. CALL LIGHT IN REACH. PT ENCOURAGED TO CALL FOR ASSISTANCE. WILL CONT. MONITORING. WILL CONT. W/ THE PLAN OF CARE.
--- NOTE | 2018-09-21 08:28 | NUR ---
CBS=65. PT IS A,A,OX3. APPLE JUICE WAS GIVEN AND PT IS EATING HER BREAKFAST AT THIS TIME. WILL RECHECK IN 15 MIN. PT IS ASYMPTOMATIC. WILL CONT. MONITORING.
[2018-09-21] MEDS: PANTOPRAZOLE (EC) 40 MG TAB PO SCH (08:38)
[2018-09-21] MEDS: POLYETHYLENE GLYCOL 17 GM PACKET PO SCH (08:39)
[2018-09-21] MEDS: ASPIRIN (EC) 81 MG TAB PO SCH (08:39)
[2018-09-21] MEDS: BALSAM PERU/CASTOR OIL 60 GM TUBE TOP SCH ×2 (08:39→21:00)
[2018-09-21] MEDS: SEVELAMER CARBONATE 800 MG TABLET PO SCH ×2 (08:39→13:17)
--- NOTE | 2018-09-21 08:43 | CONS ---
Date/Time of Note Date/Time of Note DATE: 09/21/18 TIME: 08:42 Assessment/Plan Assessment/Plan Chief Complaint/Hosp Course 88 yo Female with 1)RLE PVD, Recent Rt Toe gangrene S/p Transection, S/p BKA POD #1 2)ESRD on HD TTS, S/p HD yesterday Pre-op 3)Hyperkalemia, Resolved now 3.9 4) DM with Renal complication, CKD ESRD 5) Anemia, CKD 6) MBD CKD 7) Chronic HTN 8) CAD, CHF Chronic HD plan for today BP improved Repeat labs in am monitor [facility] Consultation Date/Type/Reason Admit Date/Time Sep 18, 2018 at 10:31 Initial Consult Date 09/18/18 Type of Consult Renal Requesting Provider: MICHELLE CARD MD 24 HR Interval Summary Constitutional: requiring O2 Exam/Review of Systems Vital Signs Vitals Vital Signs Date Temp Pulse Resp B/P (MAP) Pulse Ox O2 O2 Flow FiO2 Time Delivery Rate 09/21/18 98.6 66 18 112/51 98 Nasal 07:15 (71) Cannula 09/20/18 2.0 20:00 Exam Constitutional: frail; No distress ENMT: mucosa pink and moist Respiratory: No diminished breath sounds, No labored breathing Cardiovascular: No edema Gastrointestinal: soft Extremities: No edema Neurological: lethargic LILLIAN ONEIL MD Sep 21, 2018 08:43
--- NOTE | 2018-09-21 08:47 | NUR ---
CBS=65. PT IS ASYMPTOMATIC . APPLE JUICE GIVEN AND PT IS STILL EATING HER BREAKFAST AT THIS TIME. WILL RECHECK IN 15 MIN AND CONT. MONITORING.
[2018-09-21] MEDS: NYSTATIN 30 GM POWDER BTL TOP SCH ×2 (08:48→21:00)
[2018-09-21] MEDS: GLUCOSE GEL 15 GRAM TUBE PO PRN (08:51)
--- NOTE | 2018-09-21 08:51 | NUR ---
PT WAS GIVEN ORAL GLUCOSE PER ORDER. PT HAS NO IV ACCESS. WILL CONT. MONITORING.
--- NOTE | 2018-09-21 09:14 | NUR ---
CBS=65. UNABLE TO GIVE IM GLUCOSE INJECTION DUE TO STERIL WATER FOR INJECTIONS NOT AVAILABLE FROM PHARMACY FOR RECONSTITUTION. CALLED PHARMACY TO ORDER STERIL WATER. PT WAS GIVEN APPLE JUICE AND SHE CONTINUES EATING HER BREAKFAST AT THIS TIME.
[2018-09-21] MEDS: GLUCAGON 1 MG INJ IM PRN (09:18)
--- NOTE | 2018-09-21 09:28 | NUR ---
CBS=79. PT IS ASYMPTOMATIC. WILL CONT. MONITORING.
--- NOTE | 2018-09-21 09:50 | NUR ---
CBS=84. NO DISTRESS. PT IS RESTING COMFORTABLY. WILL CONT. MONITORING CLOSELY.
--- NOTE | 2018-09-21 10:41 | NUR ---
CBS=95. NO CHANGES IN CONDITION. NO DISTRESS. WILL CONT. MONITORING.
--- NOTE | 2018-09-21 11:28 | NUR ---
Bedside swallowing evaluation completed: Patient is an 88 y/o female who is s/p BKA with hx of right foot gangrene being treated on med surg. floor. Med hx is also significant for chronic PAD, ESRD w/ dialysis, failure to thrive, diabetes, HTN, anemia, constipation, and thrombocytopenia. Med hx also questionable for pacemaker, CAD, and CHF. Patient was referred to for swallowing evaluation for possible dysphagia. On admission patient was placed on a regular diet with thin liquids. Med records revealed she was then changed to puree/ ntl and then [facility] soft / ntl. Per pt and family interview, patient was tolerating a diet of soft solids/ thin liquids at home. Impacted by only partial remaining natural dentition and no dentures. Oral [facility]: oral motor strength is wfl for age. hyolaryngeal excursion is wfl for age. Mild reduced coordination of alternating movements trials: thin liquids via spoon, cup and straw, pureed solids, soft solids, reg solids - limited trials accepted 2/2 red. activity tolerance sitting upright d/t leg pain Increased time for mastication of soft and regular solids. Difficult for patient to fully masticate reg solids 2/2 missing teeth. Benefitted from liquid wash to clear residue of reg. solids from oral cavity. Prolonged bolus hold and incr. time required to initiate a/p transit across consistencies. Suspect mild delayed initiation of pharyngeal swallow. Repeat swallows noted with larger boluses. Tolerated all trials without s/s aspiration. Recommendations: Soft solids /thin liquids Upright for PO Meds crushed in puree Maintain asp. precautions/ oral care guidelines Hold PO if not alert. ST to f/u
--- NOTE | 2018-09-21 15:00 | NUR ---
HD RN CAME TO CHECK THE PT AND INFORMED THE PT AND FAMILY THAT PT [facility]
--- NOTE | 2018-09-21 16:20 | PN ---
Date/Time of Note Date/Time of Note DATE: 09/21/18 TIME: 16:17 Assessment/Plan VTE Prophylaxis Risk score (from Nsg)>0 risk: 8 SCD applied (from Nsg): No SCD contraindicated: low risk/ambulating Pharmacological prophylaxis: LMWH Lines/Catheters IV Catheter Type (from Nrsg): NO IV ACCESS Assessment/Plan Hospital Course Assessment and plan 1. Rt foot gangrene, sp BKA, stable. Cleared for dc from a vascular standpoint. Dressing change done for now. 2. Chr PAD, stable restart asa if no bleeding 3. ESRD dialysis Saturday 4. Ftt; may need snf, family aware. cont wound care; PT 5. Diabetes 6. Hypertension 7. Anemia 8. Constipation 9. Thrombocytopenia 10. Pacemaker? 11. Coronary artery disease? 12. CHF? 13. Sm; check echo 14. Hypoglycemia poor appetite. Poor IV access will push oral diet etc. S: 09/19 mild to moderate pain. No dyspnea chest pain. Spirits okay. 09/20: Mod pain, unable to ambulate with PT. I reinforced the need to medicate prior to PT. Unfortunately the patient has not walked in 2 mnths. High risk of further debility/ decline in health. may need snf. high risk of ulcers pneumonia and functional quadriplegia, recommend advanced care planning be reevaluated/consider palliative care. 09/21: Hypoglycemia. Lantus adjusted. Poor appetite. No constipation. No hypog lycemic treatmetn available here/ unable to give oral or IM replacement glucose yesterday. O: Vss, bbb PE No pallor/ jvd Reg +sm' no r/g Clear Benign nt nd no RRG; Rt BKA status stable; Diabetic neuropathy? Exam/Review of Systems Vital Signs Vitals Vital Signs Date Temp Pulse Resp B/P (MAP) Pulse Ox O2 O2 Flow FiO2 Time Delivery Rate 09/21/18 98.0 65 20 131/58 100 Nasal 14:53 (82) Cannula 09/21/18 2.0 08:00 LOU RAMÍREZ MD Sep 21, 2018 16:20
--- NOTE | 2018-09-21 16:40 | NUR ---
EOSS; PT'S HEMODYNAMICS AND RESPIR. STATUS ARE STABLE. NO COMPLICATIONS. NO CHANGES IN CONDITION. PAIN MGMT IS EFFECTIVE. WILL CONT. MONITORING. WILL CONT. W/ THE PLAN OF CARE. HD TO BE DONE TONIGHT .
[2018-09-21] MEDS ORDERED: DEXTROSE 5%-0.45% NACL 1,000 ML IV SCH (18:00)
[2018-09-21] MEDS ORDERED: ALBUMIN HUMAN 25% 50 ML IV PRN (20:30)
[2018-09-22] MEDS: POLYETHYLENE GLYCOL 17 GM PACKET PO SCH ×3 (00:51→20:28)
[2018-09-22] MEDS: HYDROCODONE/APAP (10/325) TAB PO PRN ×4 (00:51→17:49)
[2018-09-22] MEDS: ATORVASTATIN 20 MG TAB PO SCH ×2 (00:51→20:28)
[2018-09-22] MEDS: GABAPENTIN 100 MG CAP PO SCH ×2 (00:51→20:28)
[2018-09-22] MEDS: SEVELAMER CARBONATE 800 MG TABLET PO SCH ×4 (00:53→20:28)
[2018-09-22] MEDS: SENNA/DOCUSATE NA (8.6MG/50MG) TAB PO SCH ×2 (00:54→20:28)
[2018-09-22] MEDS: ACCU-CHEK XX SCH (02:00)
[2018-09-22 02:07] VITALS: BP 110/54; PULSE 66; RESP 18
--- NOTE | 2018-09-22 06:28 | NUR ---
PT RECEIVED HD EARLIER THIS SHIFT WITH [facility]CC TAKEN OUT. PT MEDICATED FOR PAIN X1. PT DECLINED MOST NOC MEDS AND ONLY WANTED PAIN MANAGEMENT. VSS AFBRILE R BKA SITE WITH DSG CDI. DAUGHTER AT BEDSIDE. PT TURNED AND REPOSITIONED Q 2HRS FOR COMFORT. WILL CONTINUE POC.
[2018-09-22] MEDS: INSULIN ASPART [NOVOLOG] 3 ML PEN SC SCH ×4 (07:50→20:28)
[2018-09-22] MEDS: PANTOPRAZOLE (EC) 40 MG TAB PO SCH (08:38)
[2018-09-22] MEDS: ASPIRIN (EC) 81 MG TAB PO SCH (08:38)
[2018-09-22] MEDS: NYSTATIN 30 GM POWDER BTL TOP SCH ×2 (08:38→20:29)
[2018-09-22] MEDS: BALSAM PERU/CASTOR OIL 60 GM TUBE TOP SCH ×2 (08:38→20:29)
--- NOTE | 2018-09-22 08:59 | CONS ---
Date/Time of Note Date/Time of Note DATE: 09/22/18 TIME: 08:58 Assessment/Plan Assessment/Plan Problems: (1) Anemia Comment: Add epo (2) ESRD on hemodialysis Status: Chronic Comment: HD 09/24 (3) DM2 (diabetes mellitus, type 2) Comment: BS has been low, Lantus dcd (4) Atherosclerotic PVD with ulceration Consultation Date/Type/Reason Admit Date/Time Sep 18, 2018 at 10:31 Initial Consult Date 09/18/18 Requesting Provider: MICHELLE CARD MD Exam/Review of Systems Vital Signs Vitals Vital Signs Date Temp Pulse Resp B/P (MAP) Pulse Ox O2 O2 Flow FiO2 Time Delivery Rate 09/22/18 98.0 66 18 110/54 94 02:07 (72) 09/21/18 Nasal 2.0 20:10 Cannula Intake and Output 09/21/18 09/21/18 09/22/18 1515:00 23:00 07:00 IntakeIntake Total 120 ml OutputOutput Total 200 ml 1500 ml BalanceBalance 120 ml -200 ml -1500 ml DAVE ASHLEY MD Sep 22, 2018 08:59
--- NOTE | 2018-09-22 09:51 | NUR ---
PT Evaluation (See full note below): Therapy day number 1 Evaluation Start Time 08:30 Evaluation End Time 09:15 Evaluation Total Time 45 min Subjective Current complaint of pain Pain Scale NUMERIC Pain Intensity 3 (0-10) Patient Stated Goal for Pain Relief 0 (0-10) Pain Level Comment R BKA site. Pt pre medicated. Increased pain with movement. Pre Treatment Vital Signs Stable Yes Exercise Assessment Label Left Lower Extremity Exercise Type Passive ROM Additional Exercise Comments Heel slides, APs, hip abduction. Supine to Sit Maximum Assist Sitting Tolerance 1 min Additional Mobility Comments 2PA for transfers. Pt did not tolerate sitting EOB due to pain, dizzy. Patient uses wheelchair Not Applicable Additional Gait Comments Pt non-ambulatory for ~3 months. Not appropriate for gait, only transfers. Weight Bearing Assessment Label Right Lower Extremity Weight Bearing Status Non Weight Bearing Additional Weight Bearing Comments BKA on 09/18/18. Static Sitting Balance Poor plus Safety Judgement Fair Activity Tolerance Poor Additional Equipment Present 2L NC Post Treatment Pain Intensity 6 0-10 Variance Documentation See Note PT Technical Record Comment PT Evaluation: The pt is an 88-year-old Colombian speaking F with DM, HTN, ESRD on HD, PAD. She had a RLE TMA recently that dehisced and gangrenous. Pt now presents for a RLE BKA on 09/18/18. Precautions: RLE BKA- NWB to RLE. Pt non-ambulatory for ~3 months. 2PA for safety. PLOF: Pt's daughter, Ruma, is present and assists with history, although she lives in and is not sure about all details of pt's care at home. Pt lives with her other daughter, Dorothea, and Dorothea's family in a house with 1 step to enter. Pt has 24 hour assist at home. She has a w/c, FWW, [id number]. Pt has not been ambulating for ~3 months SP a fall and a RLE TMA which is now converted to BKA. CLOF: Pt supine in bed, agreeable to PT, cleared by RN. Pt's daughter, Ruma present during session. Pt is A&O x4. Pt initially denies pain, dizziness. She has RLE BKA. Pt on 2L NC. She grossly has 3+/5 strength in BUEs and 2+/5 strength to LLE. Unable to check RLE due to pain with movement. Pt performed a sup<>sit transfer with max A of 2PA. Pt did not tolerate sitting EOB due to increased RLE pain and mild dizziness. Assisted pt back to supine position with call light and needs in reach, bed alarm on. Recommendations: Pt SP RLE BKA. She currently requires increased assist for transfers. Very limited mobility due to RLE pain and mild dizziness. Recommend to d/c pt to a SNF for continued care and assist with transfers. If family refuses SNF, she will need 24 hour assist at home with HHPT. Will cont to work with pt Daily x5 until therapy goals are met.
--- NOTE | 2018-09-22 12:19 | PN ---
Date/Time of Note Date/Time of Note DATE: 09/22/18 TIME: 12:18 Assessment/Plan VTE Prophylaxis Risk score (from Ns)>0 risk: 7 SCD applied (from Ns): No SCD contraindicated: other Pharmacological prophylaxis: NA/contraindicated, other (Adverse reaction to heparin.) Pharm contraindication: other (Heparin allergy) Lines/Catheters [facility]ter Type (from [facility]): NO IV ACCESS Assessment/Plan Hospital Course SUBJECTIVE: Denies any pain. OBJECTIVE: Physical Exam General: Adequately build 88 year-old female lying in bed in no apparent distress. HEENT: Normocephalic, atraumatic. Eyes: Anicteric sclerae, conjunctivae clear. ENT: Nasal septum midline, oral mucosa moist. Neck supple, no JVD noticed. Respiratory: Bilaterally clear breath sounds. No use of accessory muscles of respiration. No adventitious breath sounds. Cardiovascular: S1, S2 heard. Systolic murmur. Abdomen: Soft, nontender, and nondistended. Bowel sounds positive in all 4 q uadrants. Genitourinary: Deferred. Extremities: Right lower extremity BKA with stump dressing. Left lower extremity no edema. Neurologic: Cranial nerves II through XII grossly intact. The patient is awake, alert, and oriented. Skin: Normal skin turgor. No skin rashes. Labs & Vitals per chart ASSESSMENT & PLAN 88-year-old female with past medical history of end-stage renal disease on hemodialysis, diabetes mellitus, peripheral artery disease, as well as gangrene of the right foot who was brought to [facility]. The patient underwent a right below-knee amputation on 09/18/2018. The patient was admitted to inpatient setting for further monitoring. 1. Peripheral artery disease with right foot gangrene. -Status post right below-knee amputation on 09/18/2018. -Continue physical therapy. 2. End-stage renal disease on hemodialysis -Being followed by nephrology. -Continue hemodialysis. 3. Diabetes mellitus -Hemoglobin A1c 4.7. -On sliding scale insulin. 4. Microcytic, hypochromic anemia. -Iron and Epogen as per nephrology. 5. Dyslipidemia. -On statins. 6. Severe pulmonary hypertension. -RVSP of 85 mmHg. -Most probably contributed by valvular heart disease. 7. Mild to moderate aortic stenosis. 8. Pacemaker. -Details unclear. -Outpatient follow-up. 9. Fluids, electrolytes, and nutrition. -Renal diet. 10. DVT prophylaxis. -Contraindicated. 11. Plan. -Continue HD as per nephrology. -Patient's family refusing [facility] facility placement. -DC home after the HD session on 09/23/2018. The patient was seen in collaboration with Dr. Bryant. Result Diagram: 09/21/18 0448 09/21/18 0448 Results 24hrs Laboratory Tests Test 09/21/18 13:04 09/21/18 17:32 09/21/18 20:55 09/22/18 08:35 Bedside Glucose 129 129 145 106 Exam/Review of Systems Vital Signs Vitals Vital Signs Date Temp Pulse Resp B/P (MAP) Pulse Ox O2 O2 Flow FiO2 Time Delivery Rate 09/22/18 98.0 66 18 110/54 94 02:07 (72) 09/21/18 Nasal 2.0 20:10 Cannula Intake and Output 09/21/18 09/21/18 09/22/18 1515:00 23:00 07:00 IntakeIntake Total 120 ml OutputOutput Total 200 ml 1500 ml BalanceBalance 120 ml -200 ml -1500 ml Medications Medications Current Medications IV Flush (NS 3 ml) 3 ml PER PROTOCOL IV ; Start 09/18/18 at 16:00 Ondansetron HCl (Zofran Inj) 4 mg Q6H PRN IV NAUSEA AND/OR VOMITING Last administered on 09/19/18at 09:10; Admin Dose 4 MG; Start 09/18/18 at 16:00 Acetaminophen (Tylenol Tab) 650 mg Q6H PRN PO PAIN LEVEL 1-3 OR FEVER; Start 09/18/18 at 16:00 Atorvastatin Calcium (Lipitor) 20 mg QHS PO Last administered on 09/19/18at 22:02; Admin Dose 20 MG; Start 09/18/18 at 21:00 Docusate Sodium (Colace) 100 mg TID PRN PO CONSTIPATION Last administered on 09/19/18at 06:08; Admin Dose 100 MG; Start 09/18/18 at 16:00 Pantoprazole (Protonix Tab) 40 mg AC BREAKFAST PO Last administered on 09/22/18at 08:38; Admin Dose 40 MG; Start 09/19/18 at 07:00 Diagnostic Test (Pha) (Accu-Chek) 1 ea 02 XX ; Start 09/19/18 at 02:00 Insulin Aspart (Novolog Insulin Pen) NOVOLOG *MILD* ALGORITHM WITH MEALS BEDTIME SC Last administered on 09/19/18at 13:15; Admin Dose 2 UNIT; Start 09/18/18 at 18:00 Miscellaneous Information 1 ea NOTE XX ; Start 09/18/18 at 16:00 Glucose (Glutose) 15 gm Q15M PRN PO DECREASED GLUCOSE Last administered on 09/21/18at 08:51; Admin Dose 15 GM; Start 09/18/18 at 16:00 Glucose (Glutose) 22.5 gm Q15M PRN PO DECREASED GLUCOSE; Start 09/18/18 at 16:00 Dextrose (D50w Syringe) 25 ml Q15M PRN IV DECREASED GLUCOSE; Start 09/18/18 at 16:00 Dextrose (D50w Syringe) 50 ml Q15M PRN IV DECREASED GLUCOSE; Start 09/18/18 at 16:00 Glucagon (Glucagen) 1 mg Q15M PRN IM DECREASED GLUCOSE Last administered on 09/20/18at 18:48; Admin Dose 1 MG; Start 09/18/18 at 16:00 Glucose (Glutose) 15 gm Q15M PRN BUCCAL DECREASED GLUCOSE; Start 09/18/18 at 16:00 Sevelamer Carbonate (Renvela) 800 mg TID PO Last administered on 09/22/18at 08:38; Admin Dose 800 MG; Start 09/18/18 at 21:45 Morphine Sulfate (morphine) 6 mg Q4H PRN PO SEVERE PAIN LEVEL 7-10 Last administered on 09/19/18at 17:51; Admin Dose 6 MG; Start 09/18/18 at 23:00 Gabapentin (Neurontin) 100 mg HS PO Last administered on 09/22/18at 00:51; Admin Dose 100 MG; Start 09/19/18 at 21:00 Acetaminophen/ Hydrocodone Bitart ([place] (10/325)) 1 tab Q3 PRN PO MODERATE PAIN LEVEL 4-6 Last administered on 09/22/18at 08:38; Admin Dose 1 TAB; Start 09/19/18 at 13:00 Senna/Docusate Sodium (Senokot-S) 2 tab HS PO Last administered on 09/19/18at 22:03; Admin Dose 2 TAB; Start 09/19/18 at 21:00 Bisacodyl (Dulcolax Supp) 10 mg Q48H PRN [place] CONSTIPATION; Start 09/19/18 at 13:00 Polyethylene Glycol (Miralax) 17 gm BID PO Last administered on 09/22/18at 08:38; Admin Dose 17 GM; Start 09/19/18 at 13:00 Nystatin (Nystatin Powder) 1 applic BID TOP Last administered on 09/22/18at 08:38; Admin Dose 1 APPLIC; Start 09/20/18 at 14:00 Aspirin (Halfprin) 81 mg DAILY PO Last administered on 09/22/18at 08:38; Admin Dose 81 MG; Start 09/21/18 at 09:00 Albumin Human 50 ml @ 100 mls/hr DURING DIALYSIS PRN IV hypotension during hd; Start 09/21/18 at 20:30 Epoetin Jalen (Epogen (Esrd)) 3,000 units MoWeFr@17 SC ; Start 09/22/18 at 17:00 CASS OLIVER NP Sep 22, 2018 12:19
[2018-09-22 15:44] VITALS: BP 126/58; RESP 18
--- NOTE | 2018-09-22 16:33 | NUR ---
CM NOTES: MET WITH THE PT AT THE BEDSIDE. PT IS A 88 YRS OLD FEMALE WITH ADMITTING DX OF RLE W/GANGRENE. SPOKE WITH SON JAIRO AND GRANDNORIS WHO WERE AT THE BEDSIDE. PRIOR TO THE ADMISSION, PT LIVED WITH FAMILY AND USED W/C, HOSPITAL BED (BUT IT IS BROKEN) AND HOME O2 AT HOME. PT'S SON JAIRO ONLY WANTS TO BE DC HOME ONLY WITH PREVIOUS HOME HEALTH. HOWEVER, PT'S SON AND GRANDSON DO NOT REMEMBER WHICH PREVIOUS HOME HEALTH. THEY WILL PROVIDE HH NAME AND TELEPHONE TOMORROW. IN TERM OF BROKEN HOSPITAL BED, THIS CM INFORMED THE GRANDSON TO FIND OUT WHICH DME AND PREVIOUS DME NEEDS TO COME OUT TO FIX IT FIRST. MEDICARE WILL NOT ALLOW ANOTHER HOSPITAL BED UNTIL IT CAN BE FIXED OR NOT. ENDER AGREED TO FOLLOW UP. PLAN: DC HOME WITH HH PENDING SON PROVIDES THE INFORMATION OF PREVIOUS HH JENNIFER LOPEZ CM [id number] Addendum: 09/22/18 at 1638 by JENNIFER COCHRAN CM Amended: Links added.
[2018-09-22] MEDS: EPOETIN 3000 UNITS/1 ML INJ (ESRD) SC SCH (17:49)
--- NOTE | 2018-09-22 18:41 | NUR ---
EOSS: PT'S HEMODYNAMICS AND RESPIR. STATUS ARE STABLE. NO COMPLICATIONS. NO CHANGES IN CONDITION. PAIN MGMT IS EFFECTIVE. WILL CONT. MONITORING. WILL CONT. W/ THE PLAN OF CARE.
[2018-09-22 20:30] VITALS: BP 111/53; PULSE 72; RESP 17
[2018-09-23] VITALS (18 sets, daily range): BP systolic 90–119; BP diastolic 46–61; PULSE 64–79; RESP 18–19
[2018-09-23] MEDS: ACCU-CHEK XX SCH (02:00)
--- NOTE | 2018-09-23 06:31 | NUR ---
PT WITH NO ACUTE EVENTS THROUGH THE NOC. NO SS HYPO/HYPERGLYCEMIA NOTED. VSS AFEBRILE. FAMILY AT BEDSIDE. PT NOW RESTING WITH EYES CLOSED NO SS DISCOMFORT NOTED. WILL CONTINUE POC
[2018-09-23] MEDS: INSULIN ASPART [NOVOLOG] 3 ML PEN SC SCH ×4 (07:50→21:00)
--- NOTE | 2018-09-23 08:33 | PN ---
Date/Time of Note Date/Time of Note DATE: 09/23/18 TIME: 08:31 Assessment/Plan VTE Prophylaxis [place] [facility] risk: 8 SCD applied [place] [facility] Yes Pharmacological prophylaxis: heparin Pharm contraindication: renal impairment, other Lines/Catheters [facility] C[facility] Type [facility]): NO IV ACCESS Assessment/Plan Assessment/Plan Assessment/Plan Problems: (1) Anemia (2) Atherosclerotic PVD with ulceration (3) ESRD on hemodialysis (4) DM2 (diabetes mellitus, type 2) [id number] comfortable hd am cont plan Result Diagram: 09/23/18 0455 09/23/18 0454 Results 24hrs Laboratory Tests Test 09/22/18 08:35 09/22/18 12:45 09/22/18 17:43 09/22/18 20:27 Bedside Glucose 106 110 94 107 Test 09/23/18 04:54 09/23/18 04:55 Sodium Level 129 L Potassium Level 5.4 H Chloride Level 95 L Carbon Dioxide 26 Level Anion Gap 8 Blood Urea 23 H Nitrogen Creatinine 2.89 H Est Glomerular Filtrat Rate mL/min Glucose Level 94 Calcium Level 7.5 L Phosphorus Level 3.4 Magnesium Level 2.2 White Blood 4.8 # Count Red Blood Count 3.30 L Hemoglobin 8.3 L Hematocrit 27.1 L Mean Corpuscular 82.1 Volume Mean Corpuscular 25.2 L Hemoglobin Mean Corpuscular 30.6 L Hemoglobin Lucia nt Red Cell 19.3 H Distribution Width Platelet Count 153 # Mean Platelet 12.6 H Volume Immature 0.400 Granulocytes % Neutrophils % 57.5 Lymphocytes % 25.3 Monocytes % 13.7 H Eosinophils % 2.9 Basophils % 0.2 Nucleated Red 0.0 Blood Cells % Immature 0.020 Granulocytes # Neutrophils # 2.8 Lymphocytes # 1.2 Monocytes # 0.7 Eosinophils # 0.1 Basophils # 0.0 Nucleated Red 0.0 Blood Cells # Subjective 24 Hr Interval Summary Constitutional: other Eyes: no complaints ENT: no complaints Respiratory: no complaints Cardiovascular: no complaints Gastrointestinal: no complaints Skin: no complaints Exam/Review of Systems Vital Signs Vitals Vital Signs Date Temp Pulse Resp B/P (MAP) Pulse Ox O2 O2 Flow FiO2 Time Delivery Rate 09/23/18 98.3 68 18 113/53 96 Room Air 07:27 (73) 09/22/18 2.0 20:30 Intake and Output 09/22/18 09/22/18 09/23/18 1515:00 23:00 07:00 IntakeIntake Total 600 ml BalanceBalance 600 ml Exam Constitutional: alert, well developed Head: normocephalic, atraumatic Eyes: nl conjunctiva, EOMI ENMT: nl external ears & nose, nl lips & teeth Neck: supple, non-tender Respiratory: clear to auscultation, normal air movement Cardiovascular: regular rate and rhythm, nl pulses Gastrointestinal: soft, nl liver, spleen, non-tender Musculoskeletal: nl extremities to inspection Medications Medications Current Medications IV Flush (NS 3 ml) 3 ml PER PROTOCOL IV ; Start 09/18/18 at 16:00 Ondansetron HCl (Zofran Inj) 4 mg Q6H PRN IV NAUSEA AND/OR VOMITING Last administered on 09/19/18at 09:10; Admin Dose 4 MG; Start 09/18/18 at 16:00 Acetaminophen (Tylenol Tab) 650 mg Q6H PRN PO PAIN LEVEL 1-3 OR FEVER; Start 09/18/18 at 16:00 Atorvastatin Calcium (Lipitor) 20 mg QHS PO Last administered on 09/22/18at 20:28; Admin Dose 20 MG; Start 09/18/18 at 21:00 Docusate Sodium (Colace) 100 mg TID PRN PO CONSTIPATION Last administered on 09/19/18at 06:08; Admin Dose 100 MG; Start 09/18/18 at 16:00 Pantoprazole (Protonix Tab) 40 mg AC BREAKFAST PO Last administered on 09/22/18at 08:38; Admin Dose 40 MG; Start 09/19/18 at 07:00 Diagnostic Test (Pha) (Accu-Chek) 1 ea 02 XX ; Start 09/19/18 at 02:00 Insulin Aspart (Novolog Insulin Pen) NOVOLOG *MILD* ALGORITHM WITH MEALS BEDTIME SC Last administered on 09/19/18at 13:15; Admin Dose 2 UNIT; Start 09/18/18 at 18:00 Miscellaneous Information 1 ea NOTE XX ; Start 09/18/18 at 16:00 Glucose (Glutose) 15 gm Q15M PRN PO DECREASED GLUCOSE Last administered on 09/21/18at 08:51; Admin Dose 15 GM; Start 09/18/18 at 16:00 Glucose (Glutose) 22.5 gm Q15M PRN PO DECREASED GLUCOSE; Start 09/18/18 at 16:00 Dextrose (D50w Syringe) 25 ml Q15M PRN IV DECREASED GLUCOSE; Start 09/18/18 at 16:00 Dextrose (D50w Syringe) 50 ml Q15M PRN IV DECREASED GLUCOSE; Start 09/18/18 at 16:00 Glucagon (Glucagen) 1 mg Q15M PRN IM DECREASED GLUCOSE Last administered on 09/20/18at 18:48; Admin Dose 1 MG; Start 09/18/18 at 16:00 Glucose (Glutose) 15 gm Q15M PRN BUCCAL DECREASED GLUCOSE; Start 09/18/18 at 16:00 Sevelamer Carbonate (Renvela) 800 mg TID PO Last administered on 09/22/18at 20:28; Admin Dose 800 MG; Start 09/18/18 at 21:45 Morphine Sulfate (morphine) 6 mg Q4H PRN PO SEVERE PAIN LEVEL 7-10 Last administered on 09/19/18at 17:51; Admin Dose 6 MG; Start 09/18/18 at 23:00 Gabapentin (Neurontin) 100 mg HS PO Last administered on 09/22/18 20:28; Admin Dose 100 MG; Start 09/19/18 at 21:00 Acetaminophen/ Hydrocodone Bitart ([place] (10/325)) 1 tab Q3 PRN PO MODERATE PAIN LEVEL 4-6 Last administered on 09/22/18at 17:49; Admin Dose 1 TAB; Start 09/19/18 at 13:00 Senna/Docusate Sodium (Senokot-S) 2 tab HS PO Last administered on 09/22/18 20:28; Admin Dose 2 TAB; Start 09/19/18 at 21:00 Bisacodyl (Dulcolax Supp) 10 mg Q48H PRN [place] CONSTIPATION; Start 09/19/18 at 13:00 Polyethylene Glycol (Miralax) 17 gm BID PO Last administered on 09/22/18at 20:28; Admin Dose 17 GM; Start 09/19/18 at 13:00 Nystatin (Nystatin Powder) 1 applic BID TOP Last administered on 09/22/18at 20:29; Admin Dose 1 APPLIC; Start 09/20/18 at 14:00 Aspirin (Halfprin) 81 mg DAILY PO Last administered on 09/22/18at 08:38; Admin Dose 81 MG; Start 09/21/18 at 09:00 Albumin Human 50 ml @ 100 mls/hr DURING DIALYSIS PRN IV hypotension during hd; Start 09/21/18 at 20:30 Epoetin Jalen (Epogen (Esrd)) 3,000 units MoWeFr@17 SC Last administered on at 17:49; Admin Dose 3,000 UNITS; Start 09/22/18 at 17:00 SHRADDHA CASON MD Sep 23, 2018 08:33
[2018-09-23] MEDS: SEVELAMER CARBONATE 800 MG TABLET PO SCH ×3 (08:50→21:53)
[2018-09-23] MEDS: ASPIRIN (EC) 81 MG TAB PO SCH (08:50)
[2018-09-23] MEDS: POLYETHYLENE GLYCOL 17 GM PACKET PO SCH ×2 (08:50→21:54)
[2018-09-23] MEDS: PANTOPRAZOLE (EC) 40 MG TAB PO SCH (08:50)
[2018-09-23] MEDS: HYDROCODONE/APAP (10/325) TAB PO PRN (08:51)
[2018-09-23] MEDS: NYSTATIN 30 GM POWDER BTL TOP SCH ×2 (08:51→21:55)
[2018-09-23] MEDS: BALSAM PERU/CASTOR OIL 60 GM TUBE TOP SCH ×2 (08:52→21:55)
--- NOTE | 2018-09-23 09:23 | NUR ---
CM NOTE CALLED THE HOME HEALTH AND THERE IS NO ANSWER AT THIS TIME, CM WILL CONTINUE TO FOLLOW UP.ALSO S/W DAUGHTER ALEC, SHE IS REQUESTING A BED PER HER THE OLD ONE IS BROKEN, CM MADE HER AWARE THAT SHE WILL NEED TO FOLLOW UP WITH THE [employer] THAT PROVIDED THE BED TO HAVE IT SERVICE,PER ALEC SHE WILL FOLLOW UP IN AM. CM WILL CONTINUE TO CALL HOME HEALTH.
--- NOTE | 2018-09-23 13:46 | NUR ---
[facility]. CONFIRMATION NUMBER IS [id number]. MAGGY OLIVER NP IS AWARE.
--- NOTE | 2018-09-23 13:49 | PN ---
Date/Time of Note Date/Time of Note DATE: 09/23/18 TIME: 13:49 Assessment/Plan VTE Prophylaxis Risk score (from Ns)>0 risk: 9 SCD applied (from Ns): Yes SCD contraindicated: other Pharmacological prophylaxis: NA/contraindicated, other Pharm contraindication: other Lines/Catheters IV Catheter Type (from [facility]): NO IV ACCESS Assessment/Plan Hospital Course SUBJECTIVE: Denies any pain. OBJECTIVE: Physical Exam General: Adequately build 88 year-old female lying in bed in no apparent distress. HEENT: Normocephalic, atraumatic. Eyes: Anicteric sclerae, conjunctivae clear. ENT: Nasal septum midline, oral mucosa moist. Neck supple, no JVD noticed. Respiratory: Bilaterally clear breath sounds. No use of accessory muscles of respiration. No adventitious breath sounds. Cardiovascular: S1, S2 heard. Systolic murmur. Abdomen: Soft, nontender, and nondistended. Bowel sounds positive in all 4 quadrants. Genitourinary: Deferred. Extremities: Right lower extremity BKA with stump dressing. Left lower extremity no edema. Neurologic: Cranial nerves II through XII grossly intact. The patient is awake, alert, and oriented. Skin: Normal skin turgor. No skin rashes. Labs & Vitals per chart ASSESSMENT & PLAN 88-year-old female with past medical history of end-stage renal disease on hemodialysis, diabetes mellitus, peripheral artery disease, as well as gangrene of the right foot who was brought to [facility]. The patient underwent a right below-knee amputation on 09/18/2018. The patient was admitted to inpatient setting for further monitoring. 1. Peripheral artery disease with right foot gangrene. -Status post right below-knee amputation on 09/18/2018. -Continue physical therapy. 2. End-stage renal disease on hemodialysis -Being followed by nephrology. -Continue hemodialysis. 3. Diabetes mellitus -Hemoglobin A1c 4.7. -On sliding scale insulin. 4. Microcytic, hypochromic anemia. -Iron and Epogen as per nephrology. 5. Dyslipidemia. -On statins. 6. Severe pulmonary hypertension. -RVSP of 85 mmHg. -Most probably contributed by valvular heart disease. 7. Mild to moderate aortic stenosis. 8. Pacemaker. -Details unclear. -Outpatient follow-up. 9. Fluids, electrolytes, and nutrition. -Renal diet. 10. DVT prophylaxis. -Contraindicated. 11. Plan. -Continue HD as per nephrology. -Patient's family refusing group home facility placement. -DC home after the HD session on 09/23/2018. The patient was seen in collaboration with Dr. Bryant. Result Diagram: 09/23/18 0455 09/23/18 0454 Results 24hrs Laboratory Tests Test 09/22/18 17:43 09/22/18 20:27 09/23/18 04:54 09/23/18 04:55 Bedside Glucose 94 107 Sodium Level 129 L Potassium Level 5.4 H Chloride Level 95 L Carbon Dioxide 26 Level Anion Gap 8 Blood Urea 23 H Nitrogen Creatinine 2.89 H Est Glomerular Filtrat Rate mL/min Glucose Level 94 Calcium Level 7.5 L Phosphorus Level 3.4 Magnesium Level 2.2 White Blood 4.8 # Count Red Blood Count 3.30 L Hemoglobin 8.3 L Hematocrit 27.1 L Mean Corpuscular 82.1 Volume Mean Corpuscular 25.2 L Hemoglobin Mean Corpuscular 30.6 L Hemoglobin Lucia nt Red Cell 19.3 H Distribution Width Platelet Count 153 # Mean Platelet 12.6 H Volume Immature 0.400 Granulocytes % Neutrophils % 57.5 Lymphocytes % 25.3 Monocytes % 13.7 H Eosinophils % 2.9 Basophils % 0.2 Nucleated Red 0.0 Blood Cells % Immature 0.020 Granulocytes # Neutrophils # 2.8 Lymphocytes # 1.2 Monocytes # 0.7 Eosinophils # 0.1 Basophils # 0.0 Nucleated Red 0.0 Blood Cells # Test 09/23/18 08:29 09/23/18 12:44 Bedside Glucose 103 101 Exam/Review of Systems Vital Signs Vitals Vital Signs Date Temp Pulse Resp B/P (MAP) Pulse Ox O2 O2 Flow FiO2 Time Delivery Rate 09/23/18 Nasal 2.0 08:00 Cannula 09/23/18 98.3 68 18 113/53 96 07:27 (73) Intake and Output 09/22/18 09/22/18 09/23/18 1515:00 23:00 07:00 IntakeIntake Total 600 ml BalanceBalance 600 ml Medications Medications Current Medications IV Flush (NS 3 ml) 3 ml PER PROTOCOL IV ; Start 09/18/18 at 16:00 Ondansetron HCl (Zofran Inj) 4 mg Q6H PRN IV NAUSEA AND/OR VOMITING Last administered on 09/19/18at 09:10; Admin Dose 4 MG; Start 09/18/18 at 16:00 Acetaminophen (Tylenol Tab) 650 mg Q6H PRN PO PAIN LEVEL 1-3 OR FEVER; Start 09/18/18 at 16:00 Atorvastatin Calcium (Lipitor) 20 mg QHS PO Last administered on 09/22/18at 20:28; Admin Dose 20 MG; Start 09/18/18 at 21:00 Docusate Sodium (Colace) 100 mg TID PRN PO CONSTIPATION Last administered on 09/19/18at 06:08; Admin Dose 100 MG; Start 09/18/18 at 16:00 Pantoprazole (Protonix Tab) 40 mg AC BREAKFAST PO Last administered on 09/23/18at 08:50; Admin Dose 40 MG; Start 09/19/18 at 07:00 Diagnostic Test (Pha) (Accu-Chek) 1 ea 02 XX ; Start 09/19/18 at 02:00 Insulin Aspart (Novolog Insulin Pen) NOVOLOG *MILD* ALGORITHM WITH MEALS BEDTIME SC Last administered on 09/19/18at 13:15; Admin Dose 2 UNIT; Start 09/18/18 at 18:00 Miscellaneous Information 1 ea NOTE XX ; Start 09/18/18 at 16:00 Glucose (Glutose) 15 gm Q15M PRN PO DECREASED GLUCOSE Last administered on 09/21/18at 08:51; Admin Dose 15 GM; Start 09/18/18 at 16:00 Glucose (Glutose) 22.5 gm Q15M PRN PO DECREASED GLUCOSE; Start 09/18/18 at 16:00 Dextrose (D50w Syringe) 25 ml Q15M PRN IV DECREASED GLUCOSE; Start 09/18/18 at 16:00 Dextrose (D50w Syringe) 50 ml Q15M PRN IV DECREASED GLUCOSE; Start 09/18/18 at 16:00 Glucagon (Glucagen) 1 mg Q15M PRN IM DECREASED GLUCOSE Last administered on 09/20/18at 18:48; Admin Dose 1 MG; Start 09/18/18 at 16:00 Glucose (Glutose) 15 gm Q15M PRN BUCCAL DECREASED GLUCOSE; Start 09/18/18 at 16:00 Sevelamer Carbonate (Renvela) 800 mg TID PO Last administered on 09/23/18 13:27; Admin Dose 800 MG; Start 09/18/18 at 21:45 Morphine Sulfate (morphine) 6 mg Q4H PRN PO SEVERE PAIN LEVEL 7-10 Last administered on 09/19/18 17:51; Admin Dose 6 MG; Start 09/18/18 at 23:00 Gabapentin (Neurontin) 100 mg HS PO Last administered on 09/22/18 20:28; Admin Dose 100 MG; Start 09/19/18 at 21:00 Acetaminophen/ Hydrocodone Bitart ([place] (10/325)) 1 tab Q3 PRN PO MODERATE PAIN LEVEL 4-6 Last administered on 09/23/18 08:51; Admin Dose 1 TAB; Start 09/19/18 at 13:00 Senna/Docusate Sodium (Senokot-S) 2 tab HS PO Last administered on 09/22/18 20:28; Admin Dose 2 TAB; Start 09/19/18 at 21:00 Bisacodyl (Dulcolax Supp) 10 mg Q48H PRN [place] CONSTIPATION; Start 09/19/18 at 13:00 Polyethylene Glycol (Miralax) 17 gm BID PO Last administered on 09/23/18 08:50; Admin Dose 17 GM; Start 09/19/18 at 13:00 Nystatin (Nystatin Powder) 1 applic BID TOP Last administered on 09/23/18 08:51; Admin Dose 1 APPLIC; Start 09/20/18 at 14:00 Aspirin (Halfprin) 81 mg DAILY PO Last administered on 09/23/18 08:50; Admin Dose 81 MG; Start 09/21/18 at 09:00 Albumin Human 50 ml @ 100 mls/hr DURING DIALYSIS PRN IV hypotension during hd; Start 09/21/18 at 20:30 Epoetin Jalen (Epogen (Esrd)) 3,000 units MoWeFr@17 SC Last administered on 09/22/18 17:49; Admin Dose 3,000 UNITS; Start 09/22/18 at 17:00 CASS OLIVER NP Sep 23, 2018 13:49
--- NOTE | 2018-09-23 15:26 | NUR ---
CM NOTE CM FOLLOWED UP WITH HOME HEALTH AGAIN AND S/W ANSWERING SERVICE, OFFICE IS CLOSED TODAY, THIS CM FAXED OVER ORDER AND UPDATED CLINICALS TO [facility] [phone] FAX. AND WILL ENDORSE TO MORNING CM TO FOLLOW UP. [facility] [id number] [address]
--- NOTE | 2018-09-23 17:30 | NUR ---
PT IS RECEIVING HD AT THIS TIME. HD RN AT THE BEDSIDE.
--- NOTE | 2018-09-23 18:00 | NUR ---
EOSS: PT'S HEMODYNAMICS AND RESPIR. STATUS ARE STABLE. NO COMPLICATION. NO CHANGES IN CONDITION. PAIN MGMT IS EFFECTIVE. WILL CONT. MONITORING. WILL CONT. W/ THE PLAN OF CARE.
[2018-09-23] MEDS: ATORVASTATIN 20 MG TAB PO SCH (21:53)
[2018-09-23] MEDS: SENNA/DOCUSATE NA (8.6MG/50MG) TAB PO SCH (21:54)
[2018-09-23] MEDS: GABAPENTIN 100 MG CAP PO SCH (21:54)
--- NOTE | 2018-09-23 23:33 | NUR ---
REPORTS GIVEN TO RASHAD AT [id number].
--- NOTE | 2018-09-23 23:45 | NUR ---
RN NOTES: PATIENT RESTING , DAUGHTER AT BEDSIDE. INFORMED PATIENT AND DAUGHTER ON CHANGE OF PRIMARY RN.
[2018-09-24] VITALS (21 sets, daily range): BP systolic 58–138; BP diastolic 23–80; PULSE 60–101; RESP 12–18
[2018-09-24] MEDS: ACCU-CHEK XX SCH (02:00)
[2018-09-24] MEDS: HYDROCODONE/APAP (10/325) TAB PO PRN (03:59)
[2018-09-24] MEDS ORDERED: NALOXONE (0.4 MG/ML) INJ ONE (04:05)
[2018-09-24] MEDS ORDERED: NALOXONE (0.4 MG/ML) INJ IV ONE (04:30)
--- NOTE | 2018-09-24 04:52 | EN ---
Date/Time of Note Date/Time of Note DATE: 09/24/18 TIME: 04:40 Event Note Medicine Medicine Event Note code blue called at 4:05 am. Code da was called as patient was noted to be non responsive. When I arrived to the room patient was non responsive however she did have a pulse. Sternal rub did elicit mild response from the patient and continued sternal rub did begin to wake her more. As per the RN, patient was in pain earlier and was given a norco. I ordered stat Blood sugar and abg and Narcan 0.4mg IM x 1. Blood sugar was 104. After receiving the narcan the patient responded with becoming more alert and she began to answer questions. As per the nurses, she was back to her baseline. Code blue was cancelled. vitals: BP: 138/84 HR: 85 RR 14 Spo2: 98% on Non rebreather general: initially non responsive but slowly began to become wore awake with sternal rub and after receiving the narcan she was back to baseline cvs: RRR lungs: ctab, no rales neuro: initially non responsive but regained consciousness slowly and was back at baseline after 1 narcan. Alert and oriented x 2. No slurring of speech once back at baseline. CN 2-12 intact. Symmetric movement of bilateral upper and l ower extremities. A/P: Altered level of consciousness: likely secondary to opioid affect. Narcan given resulting in good response and patient back at baseline. Stat CBC, BMP, Lactic, ABG, and Troponin. Stat CT of the head without contrast. Transfer to [facility] for closer monitoring. Greater than 35 mins of critical care time was spent on the care and management of this patient. EDY TINEO Sep 24, 2018 04:51
--- NOTE | 2018-09-24 04:54 | NUR ---
RN NOTES: PATIENT WAS TAKING HER REQUESTED NORCO 1 TAB PO WITH WATER AT 0359 , HER DAUGHTER AT BEDSIDE . PATIENT WAS ABLE TO SWALLOW THE PILL . AFTER FEW MINUTES PATIENT HAD AN EMPTY STARE AND HAD STOP BREATHING. KAYA SANDRA WAS CALL ED AT 0405. PATIENT STARTED BREATHING ABOUT FEW MINUTES AFTER BUT STILL NON- RESPONSIVE. DR. TINEO CAME AT BEDSIDE AND HAD ORDERED NARCAN 0.4 IM ,SINCE NO IV ACCESS AT THAT TIME. NARCAN 0.4 IM GIVEN AT RIGHT UPPER ARM AT 0407. BLOOD SUGAR CHECK AND OBTAINED 103. AT 0408 PATIENT WAS RESPONSIVE AND VERBALLY ABLE TO STATE HER DATE. IV ACCESS STILL NOT SUCCESSFUL. HAD ORDERED CT OF BRAIN W/O CONTRAST AND WILL BE TRANSFER TO [facility] AT ROOM 518. BP LEVEL AT 0425 138/80 , HR=98. SATURATION ON O2 MASK AT 98%. REPORT GIVEN TO TELE NURSE , TYRESE MORENO.
[2018-09-24] MEDS ORDERED: LACTULOSE 30ML CUP PO PRN (05:00)
[2018-09-24] MEDS ORDERED: DOCUSATE SODIUM 100 MG CAP PO PRN (05:00)
[2018-09-24] MEDS ORDERED: SOD CHLORIDE 0.9% 250 ML IV ONE ×2 (06:00→11:30)
[2018-09-24] MEDS: ASPIRIN 81 MG TAB PO SCH ×2 (06:22→09:03)
[2018-09-24] MEDS: PANTOPRAZOLE (EC) 40 MG TAB PO SCH (06:31)
[2018-09-24] MEDS ORDERED: PANTOPRAZOLE (EC) 40 MG TAB PO SCH (07:20)
--- NOTE | 2018-09-24 07:35 | NUR ---
PT: Pt was being seen for PT treatment on med-surg unit, however is now s/p code blue and transferred to telemetry for further care. PT department will require new MD orders to reinitiate PT treatment as deemed appropriate.
--- NOTE | 2018-09-24 07:41 | NUR ---
RECEIVED PT FROM [facility] WITHOUT IV LINE. CALLED DR. TINEO FOR PICC ORDER. PT VERY HARD STICK. NIGHTSHIFT NURSES TRIED TO INSERT IV BUT UNSUCCESFUL.
[2018-09-24] MEDS ORDERED: SEVELAMER 800 MG TAB PO SCH (07:55)
[2018-09-24] MEDS: INSULIN ASPART [NOVOLOG] 3 ML PEN SC SCH ×4 (07:55→21:00)
--- NOTE | 2018-09-24 07:55 | NUR ---
Received pt from [facility], Pt a/a/ox2, mongolian speaking only, family at bedside. VS stable , no IV access.Attempted x1 unsuccessful. Clin Orthodontic Laboratory Technician aware . L arm with AV shunt and R BKA with dressing. Noted stage 2 on buttock picture taken verified by Clinical Orthodontic Laboratory Technician Ag. Lactic acid abnormal 2.7 , dr Tao notified order to give fluids bolus, not able to give at this moment due to no access IV. Need to repeat lactic acid after 6 hrs, order entered. report given to incoming nurse Karolyn to continue the care.
--- NOTE | 2018-09-24 08:42 | NUR ---
MIDLINE INSERTION: UNDER STERILE CONDITIONS, RIGHT BASILIC VEIN WAS ACCESSED WITH ULTRASOUND GUIDANCE. 20G 10CM CATHETER INSERTED WITHOUT DIFFICULTY, 1 ATTEMPT. GOOD BLOOD RETURN. DRESSED, MO MORENO INFORMED OF SUCCESSFUL PLACEMENT. PT TOLERATED WELL. EDUCATED FAMILY ON MIDLINE CATHETER, INFORMATIONAL HANDOUT LEFT AT BEDSIDE.
[2018-09-24] MEDS: SEVELAMER CARBONATE 800 MG TABLET PO SCH ×3 (09:00→20:52)
[2018-09-24] MEDS: POLYETHYLENE GLYCOL 17 GM PACKET PO SCH ×2 (09:03→20:53)
[2018-09-24] MEDS: NYSTATIN 30 GM POWDER BTL TOP SCH ×2 (09:05→20:52)
[2018-09-24] MEDS: BALSAM PERU/CASTOR OIL 60 GM TUBE TOP SCH ×2 (09:05→20:52)
--- NOTE | 2018-09-24 11:29 | NUR ---
ST NOTE: pt seen for f/up; tolerating diet however needs cues to use liquid wash down sec. to oral residue; alternate food/liquids; family bedside; pt was reclined; repositioned and educated importance of upright posture and not to feed flat; pt afebrile;
--- NOTE | 2018-09-24 11:47 | PN ---
Date/Time of Note Date/Time of Note DATE: 09/24/18 TIME: 11:42 Assessment/Plan VTE Prophylaxis Risk score (from Ns)>0 risk: 12 SCD applied (from Ns): No SCD contraindicated: other Pharmacological prophylaxis: NA/contraindicated, other Pharm contraindication: other Lines/Catheters IV Catheter Type (from [facility]): Mid Line Assessment/Plan Hospital Course SUBJECTIVE: The patient had an episode of unresponsiveness on 09/24/2018 loss claim clerk a few minutes after the patient was given Yarnell. Therefore a CODE BLUE was activated and the nocturnal hospitalist attended the patient. The patient never lost her pulse. The patient regained her consciousness after giving 0.4 mg of Narcan. The patient was moved to telemetry floor on 09/24/2018. The patient currently hypotensive. Status post 250 mL IV bolus normal saline. Remains asymptomatic. OBJECTIVE: Physical Exam General: Adequately build 88 year-old female lying in bed in no apparent distress. HEENT: Normocephalic, atraumatic. Eyes: Anicteric sclerae, conjunctivae clear. ENT: Nasal septum midline, oral mucosa moist. Neck supple, no JVD noticed. Respiratory: Bilaterally clear breath sounds. No use of accessory muscles of respiration. No adventitious breath sounds. Cardiovascular: S1, S2 heard. Systolic murmur. Abdomen: Soft, nontender, and nondistended. Bowel sounds positive in all 4 quadrants. Genitourinary: Deferred. Extremities: Right lower extremity BKA with stump dressing. Left lower extremity no edema. Neurologic: Cranial nerves II through XII grossly intact. The patient is awake, alert, and oriented. Skin: Normal skin turgor. No skin rashes. Labs & Vitals per chart ASSESSMENT & PLAN 88-year-old female with past medical history of end-stage renal disease on hemodialysis, diabetes mellitus, peripheral artery disease, as well as gangrene of the right foot who was brought to [facility]. The patient underwent a right below-knee amputation on 09/18/2018. The patient was admitted to inpatient setting for further monitoring. 1. Peripheral artery disease with right foot gangrene. -Status post right below-knee amputation on 09/18/2018. -Continue physical therapy. 2. End-stage renal disease on hemodialysis -Being followed by nephrology. -Continue hemodialysis. 3. Diabetes mellitus -Hemoglobin A1c 4.7. -On sliding scale insulin. 4. Microcytic, hypochromic anemia. -Iron and Epogen as per nephrology. 5. Dyslipidemia. -On statins. 6. Severe pulmonary hypertension. -RVSP of 85 mmHg. -Most probably contributed by valvular heart disease. 7. Mild to moderate aortic stenosis. 8. Pacemaker. -Details unclear. -Outpatient follow-up. 9. Lactic acidosis -Etiology unclear. The patient remains afebrile. -Trend lactate levels. 10. Fluids, electrolytes, and nutrition. -Renal diet. 11. DVT prophylaxis. -Contraindicated. 12. Plan. -Continue HD as per nephrology. -Patient's family refusing [facility] facility placement. -Patient had an episode of unresponsiveness and hypotension on 09/24/2018. If the patient remains persistently hypotensive, the patient may need to be moved to intensive care unit for initiation of pressors. The patient family is at the bedside and they wanted the patient to be a full code. The patient was seen in collaboration with Dr. Bryant. Result Diagram: 09/24/18 0427 09/24/18 0427 Results 24hrs Laboratory Tests Test 09/23/18 12:44 09/23/18 17:26 09/23/18 21:57 09/24/18 04:07 Bedside Glucose 101 113 100 102 Test 09/24/18 04:12 09/24/18 04:27 09/24/18 06:07 09/24/18 07:58 Blood Gas Blood venous Specimen Source Arterial Blood 09/24/2018 4:20 Date Drawn :03 AM Arterial Blood 7.311 L pH (Temp corrected ) Arterial Blood 64.0 H pCO2 (Temp correct) Arterial Blood 34.9 *L pO2 (Temp corrected ) Arterial Blood 31.6 H HCO3 Arterial Blood 4.0 H Base Excess Arterial Blood 57.2 L Oxygen Saturati on Kory Test N/A Arterial Blood VENOUS LINE Gas Puncture Site Arterial 0.7 Blood Carboxyhe moglobin Arterial Blood 0.3 Methemoglobin Oxyhemoglobin 56.6 L Percent Blood Gas 37.0 Temperature Blood Gas MASK - NRB Modality FiO2 100.0 Blood Gas UP Notified Whom Blood Gas 09/24/2018 4:35 Notified Time :56 AM White Blood 6.9 # Count Red Blood Count 3.74 L Hemoglobin 9.3 L Hematocrit 30.4 L Mean 81.3 L Corpuscular Volume Mean 24.9 L Corpuscular Hemoglobin Mean 30.6 L Corpuscular Hemoglobin Conc ent Red Cell 19.4 H Distribution Width Platelet Count 151 Mean Platelet 11.0 H Volume Immature 0.300 Granulocytes % Neutrophils % 48.6 Lymphocytes % 38.0 Monocytes % 11.5 H Eosinophils % 1.3 Basophils % 0.3 Nucleated Red 0.0 Blood Cells % Immature 0.020 Granulocytes # Neutrophils # 3.3 Lymphocytes # 2.6 Monocytes # 0.8 Eosinophils # 0.1 Basophils # 0.0 Nucleated Red 0.0 Blood Cells # Sodium Level 132 L Potassium Level 5.4 H Chloride Level 95 L Carbon Dioxide 29 Level Anion Gap 8 Blood Urea 15 Nitrogen Creatinine 2.11 H Est Glomerular Filtrat Rate mL/min Glucose Level 128 Lactic Acid 2.6 *H Level Calcium Level 8.0 L Phosphorus 2.9 Level Magnesium Level 2.3 Troponin I 0.013 Bedside Glucose 125 139 Test 09/24/18 11:02 Bedside Glucose 154 Exam/Review of Systems Vital Signs Vitals Vital Signs Date Temp Pulse Resp B/P (MAP) Pulse Ox O2 O2 Flow FiO2 Time Delivery Rate 09/24/18 97.8 60 18 82/36 (51) 92 Nasal 11:13 Cannula 09/24/18 2.0 09:00 Intake and Output 09/23/18 09/23/18 09/24/18 1515:00 23:00 07:00 IntakeIntake Total 300 ml 640 ml OutputOutput Total 900 ml BalanceBalance 300 ml -260 ml Medications Medications Current Medications IV Flush (NS 3 ml) 3 ml PER PROTOCOL IV ; Start 09/18/18 at 16:00 Ondansetron HCl (Zofran Inj) 4 mg Q6H PRN IV NAUSEA AND/OR VOMITING Last administered on 09/19/18at 09:10; Admin Dose 4 MG; Start 09/18/18 at 16:00 Acetaminophen (Tylenol Tab) 650 mg Q6H PRN PO PAIN LEVEL 1-3 OR FEVER; Start 09/18/18 at 16:00 Atorvastatin Calcium (Lipitor) 20 mg QHS PO Last administered on 09/23/18at 21:53; Admin Dose 20 MG; Start 09/18/18 at 21:00 Docusate Sodium (Colace) 100 mg TID PRN PO CONSTIPATION Last administered on 09/19/18at 06:08; Admin Dose 100 MG; Start 09/18/18 at 16:00 Pantoprazole (Protonix Tab) 40 mg AC BREAKFAST PO Last administered on 09/24/18at 06:31; Admin Dose 40 MG; Start 09/19/18 at 07:00 Diagnostic Test (Pha) (Accu-Chek) 1 ea 02 XX ; Start 09/19/18 at 02:00 Insulin Aspart (Novolog Insulin Pen) NOVOLOG *MILD* ALGORITHM WITH MEALS BEDTIME SC Last administered on 09/24/18at 11:28; Admin Dose 1 UNIT; Start 1 11/19/17 at 18:00 Miscellaneous Information 1 ea NOTE XX ; Start 09/18/18 at 16:00 Glucose (Glutose) 15 gm Q15M PRN PO DECREASED GLUCOSE Last administered on 09/21/18at 08:51; Admin Dose 15 GM; Start 09/18/18 at 16:00 Glucose (Glutose) 22.5 gm Q15M PRN PO DECREASED GLUCOSE; Start 09/18/18 at 16: 00 Dextrose (D50w Syringe) 25 ml Q15M PRN IV DECREASED GLUCOSE; Start 09/18/18 at 16:00 Dextrose (D50w Syringe) 50 ml Q15M PRN IV DECREASED GLUCOSE; Start 09/18/18 at 16:00 Glucagon (Glucagen) 1 mg Q15M PRN IM DECREASED GLUCOSE Last administered on 09/20/18at 18:48; Admin Dose 1 MG; Start 09/18/18 at 16:00 Glucose (Glutose) 15 gm Q15M PRN BUCCAL DECREASED GLUCOSE; Start 09/18/18 at 16:00 Sevelamer Carbonate (Renvela) 800 mg TID PO Last administered on 09/23/18at 21:53; Admin Dose 800 MG; Start 09/18/18 at 21:45 Morphine Sulfate (morphine) 6 mg Q4H PRN PO SEVERE PAIN LEVEL 7-10 Last administered on 09/19/18at 17:51; Admin Dose 6 MG; Start 09/18/18 at 23:00 Gabapentin (Neurontin) 100 mg HS PO Last administered on 09/23/18at 21:54; Admin Dose 100 MG; Start 09/19/18 at 21:00 Acetaminophen/ Hydrocodone Bitart (Yarnell (10/325)) 1 tab Q3 PRN PO MODERATE PAIN LEVEL 4-6 Last administered on 09/24/18at 03:59; Admin Dose 1 TAB; Start 09/19/18 at 13:00 Senna/Docusate Sodium (Senokot-S) 2 tab HS PO Last administered on 09/23/18at 21:54; Admin Dose 2 TAB; Start 09/19/18 at 21:00 Bisacodyl (Dulcolax Supp) 10 mg Q48H PRN [place] CONSTIPATION; Start 09/19/18 at 13:00 Polyethylene Glycol (Miralax) 17 gm BID PO Last administered on 09/24/18at 09:03; Admin Dose 17 GM; Start 09/19/18 at 13:00 Nystatin (Nystatin Powder) 1 applic BID TOP Last administered on 09/24/18at 09:05; Admin Dose 1 APPLIC; Start 09/20/18 at 14:00 Albumin Human 50 ml @ 100 mls/hr DURING DIALYSIS PRN IV hypotension during hd; Start 09/21/18 at 20:30 Epoetin Jalen (Epogen (Esrd)) 3,000 units MoWeFr@17 SC Last administered on 09/22/18at 17:49; Admin Dose 3,000 UNITS; Start 09/22/18 at 17:00 Aspirin (Aspirin) 81 mg DAILY PO Last administered on 09/24/18at 09:03; Admin Dose 81 MG; Start 09/24/18 at 05:00 Lactulose (Enulose) 10 gm QPM PRN PO CONSTIPATION; Start 09/24/18 at 05:00 Sodium Chloride 250 ml @ 250 mls/hr Q1H ONCE IV ; Start 09/24/18 at 11:30; Stop 09/24/18 at 12:29; Status CASS JOHN NP Sep 24, 2018 11:47
--- NOTE | 2018-09-24 15:48 | NUR ---
PT WITH LOW BP SINCE THIS AM. ALREADY GAVE TOTAL OF 500ML NS BUT STILL HYPOTENSIVE. MAGGY RIVAS MADE AWARE. PT ASSESSED BY JUNI MORENO AND GOT ORDER FROM MAGGY TO TRANSFER TO ICU. TRANSFERRED PT VIA BED WITH ALL BELONGINGS. FAMILY AWARE. REPORT GIVEN TO ABBIE MORENO.
--- NOTE | 2018-09-24 16:25 | NUR ---
NURSE NOTE: PT ARRIVED TO ICU, A/O x4; HR NSR IN THE 70s, IN REPORT WAS TOLD PT WAS HYPOTENSIVE BUT UPON USING BP CUFF ON THE RIGHT ARM THE BP IS 124/66; THE CUFF ON THE LEG WAS ALSO FOUND LOOSE WHEN THIS NURSE ASSESSED THE PT.
--- NOTE | 2018-09-24 16:42 | CONS ---
Date/Time of Note Date/Time of Note DATE: 09/24/18 TIME: 16:40 Assessment/Plan Assessment/Plan Hospital Course 88 yo Female with 1)RLE PVD, Recent Rt Toe gangrene S/p Transection, S/p BKA 2)ESRD on HD TTS 3)Hyperkalemia 4) DM with Renal complication, CKD ESRD 5) Anemia, CKD 6) MBD CKD 7) Chronic HTN 8) CAD, CHF Chronic 9) Hypotension, Resolved HD plan for tomorrow. BP improved Repeat labs in am Result Diagram: 09/24/18 0427 09/24/18 0427 Results 24hrs Laboratory Tests Test 09/23/18 17:26 09/23/18 21:57 09/24/18 04:07 09/24/18 04:12 Bedside Glucose 113 100 102 Blood Gas Blood venous Specimen Source Arterial Blood 09/24/2018 4:20 Date Drawn :03 AM Arterial Blood 7.311 L pH (Temp corrected ) Arterial Blood 64.0 H pCO2 (Temp correct) Arterial Blood 34.9 *L pO2 (Temp corrected ) Arterial Blood 31.6 H HCO3 Arterial Blood 4.0 H Base Excess Arterial Blood 57.2 L Oxygen Saturati on Kory Test N/A Arterial Blood VENOUS LINE Gas Puncture Site Arterial 0.7 Blood Carboxyhe moglobin Arterial Blood 0.3 Methemoglobin Oxyhemoglobin 56.6 L Percent Blood Gas 37.0 Temperature Blood Gas MASK - NRB Modality FiO2 100.0 Blood Gas UP Notified Whom Blood Gas 09/24/2018 4:35 Notified Time :56 AM Test 09/24/18 04:27 09/24/18 06:07 09/24/18 07:58 09/24/18 11:02 White Blood 6.9 # Count Red Blood Count 3.74 L Hemoglobin 9.3 L Hematocrit 30.4 L Mean 81.3 L Corpuscular Volume Mean 24.9 L Corpuscular Hemoglobin Mean 30.6 L Corpuscular Hemoglobin Conc ent Red Cell 19.4 H Distribution Width Platelet Count 151 Mean Platelet 11.0 H Volume Immature 0.300 Granulocytes % Neutrophils % 48.6 Lymphocytes % 38.0 Monocytes % 11.5 H Eosinophils % 1.3 Basophils % 0.3 Nucleated Red 0.0 Blood Cells % Immature 0.020 Granulocytes # Neutrophils # 3.3 Lymphocytes # 2.6 Monocytes # 0.8 Eosinophils # 0.1 Basophils # 0.0 Nucleated Red 0.0 Blood Cells # Sodium Level 132 L Potassium Level 5.4 H Chloride Level 95 L Carbon Dioxide 29 Level Anion Gap 8 Blood Urea 15 Nitrogen Creatinine 2.11 H Est Glomerular Filtrat Rate mL/min Glucose Level 128 Lactic Acid 2.6 *H Level Calcium Level 8.0 L Phosphorus 2.9 Level Magnesium Level 2.3 Troponin I 0.013 Bedside Glucose 125 139 154 Test 09/24/18 12:22 Lactic Acid 1.1 Level Creatine Kinase 41 Creatine Kinase 4.0 Index Creatinine 1.65 Kinase MB (Mass) Troponin I 0.057 Consultation Date/Type/Reason Admit Date/Time Sep 18, 2018 at 10:31 Initial Consult Date 09/18/18 Type of Consult Renal Requesting Provider: MICHELLE CARD MD 24 HR Interval Summary Free Text/Dictation Transferred due low BP, however it is normal. NO new complaints Constitutional: requiring O2 Exam/Review of Systems Vital Signs Vitals Vital Signs Date Temp Pulse Resp B/P (MAP) Pulse Ox O2 O2 Flow FiO2 Time Delivery Rate 09/24/18 74 16:00 09/24/18 15 124/66 100 Nasal 2.0 15:39 (85) Cannula 09/24/18 97.8 15:06 Intake and Output 09/23/18 09/23/18 09/24/18 1515:00 23:00 07:00 IntakeIntake Total 300 ml 640 ml OutputOutput Total 900 ml BalanceBalance 300 ml -260 ml Exam Constitutional: frail; No distress Eyes: EOMI Neck: No jvd Respiratory: No crackles/rales, No diminished breath sounds, No labored breathing Cardiovascular: regular rate and rhythm; No edema Gastrointestinal: soft, non-tender Extremities: other (RT BKA); No edema Neurological: CUE WORKER II-XII intact, nl mental status; No confused, No lethargic Skin: No diaphoresis Medications Medications Current Medications IV Flush (NS 3 ml) 3 ml PER PROTOCOL IV ; Start 09/18/18 at 16:00 Ondansetron HCl (Zofran Inj) 4 mg Q6H PRN IV NAUSEA AND/OR VOMITING Last administered on 09/19/18at 09:10; Admin Dose 4 MG; Start 09/18/18 at 16:00 Acetaminophen (Tylenol Tab) 650 mg Q6H PRN PO PAIN LEVEL 1-3 OR FEVER; Start 09/18/18 at 16:00 Atorvastatin Calcium (Lipitor) 20 mg QHS PO Last administered on 09/23/18at 21:53; Admin Dose 20 MG; Start 09/18/18 at 21:00 Docusate Sodium (Colace) 100 mg TID PRN PO CONSTIPATION Last administered on 09/19/18at 06:08; Admin Dose 100 MG; Start 09/18/18 at 16:00 Pantoprazole (Protonix Tab) 40 mg AC BREAKFAST PO Last administered on 09/24/18at 06:31; Admin Dose 40 MG; Start 09/19/18 at 07:00 Diagnostic Test (Pha) (Accu-Chek) 1 ea 02 XX ; Start 09/19/18 at 02:00 Insulin Aspart (Novolog Insulin Pen) NOVOLOG *MILD* ALGORITHM WITH MEALS BEDTIME SC Last administered on 09/24/18at 11:28; Admin Dose 1 UNIT; Start 09/18/18 at 18:00 Miscellaneous Information 1 ea NOTE XX ; Start 09/18/18 at 16:00 Glucose (Glutose) 15 gm Q15M PRN PO DECREASED GLUCOSE Last administered on 09/21/18at 08:51; Admin Dose 15 GM; Start 09/18/18 at 16:00 Glucose (Glutose) 22.5 gm Q15M PRN PO DECREASED GLUCOSE; Start 09/18/18 at 16:00 Dextrose (D50w Syringe) 25 ml Q15M PRN IV DECREASED GLUCOSE; Start 09/18/18 at 16:00 Dextrose (D50w Syringe) 50 ml Q15M PRN IV DECREASED GLUCOSE; Start 09/18/18 at 16:00 Glucagon (Glucagen) 1 mg Q15M PRN IM DECREASED GLUCOSE Last administered on 09/20/18at 18:48; Admin Dose 1 MG; Start 09/18/18 at 16:00 Glucose (Glutose) 15 gm Q15M PRN BUCCAL DECREASED GLUCOSE; Start 09/18/18 at 16:00 Sevelamer Carbonate (Renvela) 800 mg TID PO Last administered on 09/24/18at 12:54; Admin Dose 800 MG; Start 09/18/18 at 21:45 Morphine Sulfate (morphine) 6 mg Q4H PRN PO SEVERE PAIN LEVEL 7-10 Last administered on 09/19/18at 17:51; Admin Dose 6 MG; Start 09/18/18 at 23:00 Gabapentin (Neurontin) 100 mg HS PO Last administered on 09/23/18at 21:54; Admin Dose 100 MG; Start 09/19/18 at 21:00 Acetaminophen/ Hydrocodone Bitart (Thornton (10/325)) 1 tab Q3 PRN PO MODERATE PAIN LEVEL 4-6 Last administered on 09/24/18at 03:59; Admin Dose 1 TAB; Start 09/19/18 at 13:00 Senna/Docusate Sodium (Senokot-S) 2 tab HS PO Last administered on 09/23/18at 21:54; Admin Dose 2 TAB; Start 09/19/18 at 21:00 Bisacodyl (Dulcolax Supp) 10 mg Q48H PRN [place] CONSTIPATION; Start 09/19/18 at 13:00 Polyethylene Glycol (Miralax) 17 gm BID PO Last administered on 09/24/18at 09:03; Admin Dose 17 GM; Start 09/19/18 at 13:00 Nystatin (Nystatin Powder) 1 applic BID TOP Last administered on 09/24/18at 09:05; Admin Dose 1 APPLIC; Start 09/20/18 at 14:00 Albumin Human 50 ml @ 100 mls/hr DURING DIALYSIS PRN IV hypotension during hd; Start 09/21/18 at 20:30 Epoetin Jalen (Epogen (Esrd)) 3,000 units MoWeFr@17 SC Last administered on 09/22/18at 17:49; Admin Dose 3,000 UNITS; Start 09/22/18 at 17:00 Aspirin (Aspirin) 81 mg DAILY PO Last administered on 09/24/18at 09:03; Admin Dose 81 MG; Start 09/24/18 at 05:00 Lactulose (Enulose) 10 gm QPM PRN PO CONSTIPATION; Start 09/24/18 at 05:00 Norepinephrine 16 mg/Dextrose 500 ml @ 1.88 mls/hr TITRATE IV ; Start 09/24/18 at 16:30 Imaging Imaging CXR IMPRESSION: Increased interstitial edema suggesting cardiopulmonary congestion. Moderate left-sided pleural effusion and associated consolidation unchanged. RPTAT: AADD .Leobardo Alfonso MD, Date Time Electronically viewed and signed by .Leobardo Alfonso MD, on 09/24/2018 13:29 .B/ LILLIAN ONEIL MD Sep 24, 2018 16:42
--- NOTE | 2018-09-24 17:13 | PN ---
Date/Time of Note Date/Time of Note DATE: 09/24/18 TIME: 17:11 Assessment/Plan Lines/Catheters IV Catheter Type (from Nrs): Mid Line Assessment/Plan Assessment/Plan s/p R BKA - healing well, no signs of infection or ischemia - place stump protector Encourage PO intake L arm AVF with good thrill Subjective 24 Hr Interval Summary Transferred to ICU for hypotension. Awake and alert, no c/o. Exam/Review of Systems Vital Signs Vitals Vital Signs Date Temp Pulse Resp B/P (MAP) Pulse Ox O2 O2 Flow FiO2 Time Delivery Rate 09/24/18 74 16:00 09/24/18 15 124/66 100 Nasal 2.0 15:39 (85) Cannula 09/24/18 97.8 15:06 Intake and Output 09/23/18 09/23/18 09/24/18 1414:59 22:59 06:59 IntakeIntake Total 300 ml 640 ml OutputOutput Total 900 ml BalanceBalance 300 ml -260 ml Exam Free Text/Dictation BP is 120s when taken from R arm L arm AVF with good thrill R BKA clean and dry, no signs of ischemia or infection Results Result Diagram: 09/24/18 0427 09/24/18 0427 MICHELLE CARD MD Sep 24, 2018 17:13
[2018-09-24] MEDS: EPOETIN 3000 UNITS/1 ML INJ (ESRD) SC SCH (18:22)
--- NOTE | 2018-09-24 18:33 | NUR ---
NURSE NOTE: PT REMAINS AT HER BASELINE, A/Ox4; ATE DINNER; BP STILL WNL AND ABLE TO PLACE CUFF ON LEFT THIGH GIVING US CLOSE OF A READING HER RIGHT ARM; SENT ORDER FORM FOR STUMP PROTECTOR, WILL PROBABLY ARRIVE TOMORROW; ORDERS FOR HD TOMORROW AND PER DR ONEIL HE WOULD LIKE HER TO GET HD IN ICU BEFORE BEING TRANSFERRED OUT.
--- NOTE | 2018-09-24 19:12 | NUR ---
HD CONFIRMATION FOR 09/25: SPOKE WITH [facility] #[id number]
--- NOTE | 2018-09-24 19:14 | NUR ---
FAXED REQUEST FORM TO [employer] FOR HARD PLASTIC STUMP PROTECTOR; WILL ARRIVE TOMORROW.
[2018-09-24] MEDS: ATORVASTATIN 20 MG TAB PO SCH (20:51)
[2018-09-24] MEDS: SENNA/DOCUSATE NA (8.6MG/50MG) TAB PO SCH (20:52)
[2018-09-24] MEDS: GABAPENTIN 100 MG CAP PO SCH (20:52)
[2018-09-24] MEDS ORDERED: ATORVASTATIN 20 MG TAB PO SCH (21:00)
[2018-09-25] VITALS (41 sets, daily range): BP systolic 82–148; BP diastolic 20–53; PULSE 70–95; RESP 12–23
[2018-09-25] MEDS: ACCU-CHEK XX SCH ×2 (02:00→02:13)
--- NOTE | 2018-09-25 07:15 | NUR ---
EOSS: PT REMAINED HEMODYNAMICALLY STABLE OVERNIGHT. NO ACUTE CARDIAC EVENTS OVERNIGHT. PT SATTING WELL ON 2L NC. PT REMAINS ON SOFT RENAL DIET. SMALL BM THIS MORNING. NO MOHR IN PLACE. HD SCHEDULED FOR TODAY. DAUGHTER AT BEDSIDE AND UPDATED ON PLAN OF CARE, MAINLY NEPALESE SPEAKING. PT AFEBRILE AND COMFORTABLE. NO COMPLAINTS OF PAIN. WILL CONTINUE TO MONITOR AND ASSESS AND ENDORSE CARE TO DAY SHIFT RN.
[2018-09-25] MEDS: INSULIN ASPART [NOVOLOG] 3 ML PEN SC SCH ×4 (07:35→20:52)
[2018-09-25] MEDS: PANTOPRAZOLE (EC) 40 MG TAB PO SCH (08:15)
[2018-09-25] MEDS: POLYETHYLENE GLYCOL 17 GM PACKET PO SCH ×2 (08:17→20:50)
[2018-09-25] MEDS: SEVELAMER CARBONATE 800 MG TABLET PO SCH ×3 (08:17→20:49)
[2018-09-25] MEDS: ASPIRIN 81 MG TAB PO SCH (08:17)
[2018-09-25] MEDS: BALSAM PERU/CASTOR OIL 60 GM TUBE TOP SCH ×2 (08:18→20:50)
[2018-09-25] MEDS: NYSTATIN 30 GM POWDER BTL TOP SCH ×2 (08:18→20:50)
--- NOTE | 2018-09-25 10:30 | PN ---
Date/Time of Note Date/Time of Note DATE: 09/25/18 TIME: 10:25 Assessment/Plan VTE Prophylaxis Risk score (from Ns)>0 risk: 14 SCD applied (from Ns): No SCD contraindicated: other Pharmacological prophylaxis: NA/contraindicated Pharm contraindication: anticoag not tolerated Lines/Catheters IV [facility]from [facility] Mid Line Urinary Cath still in place: No Assessment/Plan Hospital Course SUBJECTIVE: The patient had an episode of unresponsiveness on 09/24/2018 manufacturer's representative a few minutes after the patient was given [place]. Therefore a CODE BLUE was activated and the nocturnal hospitalist attended the patient. The patient never lost her pulse. The patient regained her consciousness after giving 0.4 mg of Narcan. The patient was moved to telemetry floor on 09/24/2018. The patient was hypotensive on 09/24/2018. Remained persistently hypotensive despite fluid bolus and the patient was transferred to intensive care unit on 09/24/2018 for possible IV pressors. The patient's blood pressure measured on the left lower extremity slightly on the lower side. Left upper extremity unable to be used because of AV fistula. Right upper extremity only used it is often because of presence of right upper e xtremity midline. OBJECTIVE: Physical Exam General: Adequately build 88 year-old female lying in bed in no apparent distress. HEENT: Normocephalic, atraumatic. Eyes: Anicteric sclerae, conjunctivae clear. ENT: Nasal septum midline, oral mucosa moist. Neck supple, no JVD noticed. Respiratory: Bilaterally clear breath sounds. No use of accessory muscles of respiration. No adventitious breath sounds. Cardiovascular: S1, S2 heard. Systolic murmur. Abdomen: Soft, nontender, and nondistended. Bowel sounds positive in all 4 quadrants. Genitourinary: Deferred. Extremities: Right lower extremity BKA with stump dressing. Left lower extremity no edema. Neurologic: Cranial nerves II through XII grossly intact. The patient is awake, alert, and oriented. Skin: Normal skin turgor. No skin rashes. Labs & Vitals per chart ASSESSMENT & PLAN 88-year-old female with past medical history of end-stage renal disease on hemodialysis, diabetes mellitus, peripheral artery disease, as well as gangrene of the right foot who was brought to [facility]. The patient underwent a right below-knee amputation on 09/18/2018. The patient was admitted to inpatient setting for further monitoring. 1. Peripheral artery disease with right foot gangrene. -Status post right below-knee amputation on 09/18/2018. -Continue physical therapy. 2. End-stage renal disease on hemodialysis -Being followed by nephrology. -Continue hemodialysis. 3. Diabetes mellitus -Hemoglobin A1c 4.7. -On sliding scale insulin. 4. Microcytic, hypochromic anemia. -Iron and Epogen as per nephrology. 5. Dyslipidemia. -On statins. 6. Severe pulmonary hypertension. -RVSP of 85 mmHg. -Most probably contributed by valvular heart disease. 7. Mild to moderate aortic stenosis. 8. Pacemaker. -Details unclear. -Outpatient follow-up. 9. Lactic acidosis on 09/24/2018. -Etiology unclear. -Resolved. -The patient remains afebrile. -No evidence of any stump infection. 10. Hypotension. -False readings from a taking blood pressure on the left lower extremity. -No indication for any IV pressors at this time. 11. Hyponatremia. -Etiology could be secondary to advanced renal failure. -Continue to monitor. 12. Fluids, electrolytes, and nutrition. -Renal diet. 13. DVT prophylaxis. -Contraindicated. 14. Plan. -Continue HD as per nephrology. -Patient's family refusing detention facility placement. -Plan is to discharge the patient home with home health after hemodialysis today. The patient was seen in collaboration with Dr. Bryant. Result Diagram: 09/25/18 0458 09/25/18 0458 Results 24hrs Laboratory Tests Test 09/24/18 11:02 09/24/18 12:22 09/24/18 17:48 09/24/18 21:14 Bedside Glucose 154 155 139 Lactic Acid 1.1 Level Creatine Kinase 41 Creatine Kinase 4.0 Index Creatinine 1.65 Kinase MB (Mass) Troponin I 0.057 Test 09/25/18 04:58 09/25/18 08:08 White Blood 5.6 Count Red Blood Count 3.13 L Hemoglobin 7.9 L Hematocrit 25.4 L Mean Corpuscular 81.2 L Volume Mean Corpuscular 25.2 L Hemoglobin Mean Corpuscular 31.1 L Hemoglobin Lucia nt Red Cell 18.8 H Distribution Width Platelet Count 176 Mean Platelet 11.5 H Volume Immature 0.200 Granulocytes % Neutrophils % 73.6 Lymphocytes % 13.6 L Monocytes % 11.3 H Eosinophils % 1.1 Basophils % 0.2 Nucleated Red 0.0 Blood Cells % Immature 0.010 Granulocytes # Neutrophils # 4.1 Lymphocytes # 0.8 Monocytes # 0.6 Eosinophils # 0.1 Basophils # 0.0 Nucleated Red 0.0 Blood Cells # Sodium Level 129 L Potassium Level 5.0 Chloride Level 96 L Carbon Dioxide 28 Level Anion Gap 5 Blood Urea 20 Nitrogen Creatinine 2.66 H Est Glomerular Filtrat Rate mL/min Glucose Level 148 Calcium Level 7.9 L Phosphorus Level 2.9 Magnesium Level 2.2 Troponin I 0.080 Bedside Glucose 135 Exam/Review of Systems Vital Signs Vitals Vital Signs Date Temp Pulse Resp B/P (MAP) Pulse Ox O2 O2 Flow FiO2 Time Delivery Rate 09/25/18 76 23 98/39 (58) 99 Nasal 2.0 09:00 Cannula 09/25/18 98.2 08:00 Intake and Output 09/24/18 09/24/18 09/25/18 1414:59 22:59 06:59 IntakeIntake Total 90 ml 0 ml OutputOutput Total 0 ml 0 ml BalanceBalance 90 ml 0 ml Medications Medications Current Medications IV Flush (NS 3 ml) 3 ml PER PROTOCOL IV ; Start 09/18/18 at 16:00 Ondansetron HCl (Zofran Inj) 4 mg Q6H PRN IV NAUSEA AND/OR VOMITING Last administered on 09/19/18at 09:10; Admin Dose 4 MG; Start 09/18/18 at 16:00 Acetaminophen (Tylenol Tab) 650 mg Q6H PRN PO PAIN LEVEL 1-3 OR FEVER; Start 09/18/18 at 16:00 Atorvastatin Calcium (Lipitor) 20 mg QHS PO Last administered on 09/24/18at 20:51; Admin Dose 20 MG; Start 09/18/18 at 21:00 Docusate Sodium (Colace) 100 mg TID PRN PO CONSTIPATION Last administered on 09/19/18at 06:08; Admin Dose 100 MG; Start 09/18/18 at 16:00 Pantoprazole (Protonix Tab) 40 mg AC BREAKFAST PO Last administered on 09/25/18at 08:15; Admin Dose 40 MG; Start 09/19/18 at 07:00 Diagnostic Test (Pha) (Accu-Chek) 1 ea 02 XX ; Start 09/19/18 at 02:00 Insulin Aspart (Novolog Insulin Pen) NOVOLOG *MILD* ALGORITHM WITH MEALS BEDTIME SC Last administered on 09/24/18at 17:49; Admin Dose 1 UNIT; Start 09/18/18 at 18:00 Miscellaneous Information 1 ea NOTE XX ; Start 09/18/18 at 16:00 Glucose (Glutose) 15 gm Q15M PRN PO DECREASED GLUCOSE Last administered on 09/21/18at 08:51; Admin Dose 15 GM; Start 09/18/18 at 16:00 Glucose (Glutose) 22.5 gm Q15M PRN PO DECREASED GLUCOSE; Start 09/18/18 at 16:00 Dextrose (D50w Syringe) 25 ml Q15M PRN IV DECREASED GLUCOSE; Start 09/18/18 at 16:00 Dextrose (D50w Syringe) 50 ml Q15M PRN IV DECREASED GLUCOSE; Start 09/18/18 at 16:00 Glucagon (Glucagen) 1 mg Q15M PRN IM DECREASED GLUCOSE Last administered on 09/20/18at 18:48; Admin Dose 1 MG; Start 09/18/18 at 16:00 Glucose (Glutose) 15 gm Q15M PRN BUCCAL DECREASED GLUCOSE; Start 09/18/18 at 16:00 Sevelamer Carbonate (Renvela) 800 mg TID PO Last administered on 09/25/18at 08:17; Admin Dose 800 MG; Start 09/18/18 at 21:45 Morphine Sulfate (morphine) 6 mg Q4H PRN PO SEVERE PAIN LEVEL 7-10 Last administered on 09/19/18at 17:51; Admin Dose 6 MG; Start 09/18/18 at 23:00 Gabapentin (Neurontin) 100 mg HS PO Last administered on 09/24/18at 20:52; Admin Dose 100 MG; Start 09/19/18 at 21:00 Acetaminophen/ Hydrocodone Bitart ([place] (10/325)) 1 tab Q3 PRN PO MODERATE PAIN LEVEL 4-6 Last administered on 09/24/18at 03:59; Admin Dose 1 TAB; Start 09/19/18 at 13:00 Senna/Docusate Sodium (Senokot-S) 2 tab HS PO Last administered on 09/24/18at 20:52; Admin Dose 2 TAB; Start 09/19/18 at 21:00 Bisacodyl (Dulcolax Supp) 10 mg Q48H PRN [place] CONSTIPATION; Start 09/19/18 at 13:00 Polyethylene Glycol (Miralax) 17 gm BID PO Last administered on 09/25/18at 08:17; Admin Dose 17 GM; Start 09/19/18 at 13:00 Nystatin (Nystatin Powder) 1 applic BID TOP Last administered on 09/25/18at 08:18; Admin Dose 1 APPLIC; Start 09/20/18 at 14:00 Albumin Human 50 ml @ 100 mls/hr DURING DIALYSIS PRN IV hypotension during hd; Start 09/21/18 at 20:30 Epoetin Jalen (Epogen (Esrd)) 3,000 units MoWeFr@17 SC Last administered on 09/24/18at 18:22; Admin Dose 3,000 UNITS; Start 09/22/18 at 17:00 Aspirin (Aspirin) 81 mg DAILY PO Last administered on 09/25/18at 08:17; Admin Dose 81 MG; Start 09/24/18 at 05:00 Lactulose (Enulose) 10 gm QPM PRN PO CONSTIPATION; Start 09/24/18 at 05:00 Norepinephrine 16 mg/Dextrose 500 ml @ 1.88 mls/hr TITRATE IV ; Start 09/24/18 at 16:30 CASS OLIVER NP Sep 25, 2018 10:30
--- NOTE | 2018-09-25 10:48 | NUR ---
EVELYN Rivas informed re: am labs with Hgb 7.9 , no new orders received.
--- NOTE | 2018-09-25 12:56 | NUR ---
follow-up DAVITA call placed to [facility], was informed HD timeslot is between 2-5 pm .
--- NOTE | 2018-09-25 14:15 | NUR ---
patient fitted for hard plastic stump protector on R BKA by [employer] staff at bedside.
--- NOTE | 2018-09-25 14:43 | CONS ---
Date/Time of Note Date/Time of Note DATE: 09/25/18 TIME: 14:35 Assessment/Plan Assessment/Plan Hospital Course 88 yo Female with 1)RLE PVD, Recent Rt Toe gangrene S/p Transection, S/p BKA 2)ESRD on HD TTS 3)Hyperkalemia 4) DM with Renal complication, CKD ESRD 5) Anemia, CKD 6) MBD CKD 7) Chronic HTN 8) CAD, CHF Chronic 9) Hypotension, Resolved HD plan for today BP improved Repeat labs in am Gentle UF today as tolerated Thank you for the opportunity to participate in the care of Ms Phuc Valentin. Result Diagram: 09/25/18 0458 09/25/18 0458 Results 24hrs Laboratory Tests Test 09/24/18 17:48 09/24/18 21:14 09/25/18 04:58 09/25/18 08:08 Bedside Glucose 155 139 135 White Blood 5.6 Count Red Blood Count 3.13 L Hemoglobin 7.9 L Hematocrit 25.4 L Mean Corpuscular 81.2 L Volume Mean Corpuscular 25.2 L Hemoglobin Mean Corpuscular 31.1 L Hemoglobin Lucia nt Red Cell 18.8 H Distribution Width Platelet Count 176 Mean Platelet 11.5 H Volume Immature 0.200 Granulocytes % Neutrophils % 73.6 Lymphocytes % 13.6 L Monocytes % 11.3 H Eosinophils % 1.1 Basophils % 0.2 Nucleated Red 0.0 Blood Cells % Immature 0.010 Granulocytes # Neutrophils # 4.1 Lymphocytes # 0.8 Monocytes # 0.6 Eosinophils # 0.1 Basophils # 0.0 Nucleated Red 0.0 Blood Cells # Sodium Level 129 L Potassium Level 5.0 Chloride Level 96 L Carbon Dioxide 28 Level Anion Gap 5 Blood Urea 20 Nitrogen Creatinine 2.66 H Est Glomerular Filtrat Rate mL/min Glucose Level 148 Calcium Level 7.9 L Phosphorus Level 2.9 Magnesium Level 2.2 Troponin I 0.080 Test 09/25/18 11:42 Bedside Glucose 117 Consultation Date/Type/Reason Admit Date/Time Sep 18, 2018 at 10:31 Initial Consult Date 09/18/18 Type of Consult Renal Requesting Provider: MICHELLE CARD MD 24 HR Interval Summary Subjective hx not possible: pt critical status Constitutional: requiring O2 Exam/Review of Systems Vital Signs Vitals Vital Signs Date Temp Pulse Resp B/P (MAP) Pulse Ox O2 O2 Flow FiO2 Time Delivery Rate 09/25/18 82 19 118/32 95 Nasal 1.0 14:00 (60) Cannula 09/25/18 97.9 12:00 Intake and Output 09/24/18 09/24/18 09/25/18 1515:00 23:00 07:00 IntakeIntake Total 90 ml 0 ml OutputOutput Total 0 ml 0 ml BalanceBalance 90 ml 0 ml Exam Constitutional: alert, frail; No distress Eyes: EOMI ENMT: mucosa pink and moist Respiratory: No diminished breath sounds, No labored breathing Cardiovascular: No edema Gastrointestinal: soft Musculoskeletal: other (BKA) Extremities: edema (LUE) Neurological: No lethargic Skin: No diaphoresis Medications Medications Current Medications IV Flush (NS 3 ml) 3 ml PER PROTOCOL IV ; Start 09/18/18 at 16:00 Ondansetron HCl (Zofran Inj) 4 mg Q6H PRN IV NAUSEA AND/OR VOMITING Last administered on 09/19/18at 09:10; Admin Dose 4 MG; Start 09/18/18 at 16:00 Acetaminophen (Tylenol Tab) 650 mg Q6H PRN PO PAIN LEVEL 1-3 OR FEVER; Start 09/18/18 at 16:00 Atorvastatin Calcium (Lipitor) 20 mg QHS PO Last administered on 09/24/18at 20:51; Admin Dose 20 MG; Start 09/18/18 at 21:00 Docusate Sodium (Colace) 100 mg TID PRN PO CONSTIPATION Last administered on 09/19/18at 06:08; Admin Dose 100 MG; Start 09/18/18 at 16:00 Pantoprazole (Protonix Tab) 40 mg AC BREAKFAST PO Last administered on 09/25/18at 08:15; Admin Dose 40 MG; Start 09/19/18 at 07:00 Diagnostic Test (Pha) (Accu-Chek) 1 ea 02 XX ; Start 09/19/18 at 02:00 Insulin Aspart (Novolog Insulin Pen) NOVOLOG *MILD* ALGORITHM WITH MEALS BEDTIME SC Last administered on 09/24/18at 17:49; Admin Dose 1 UNIT; Start 09/18/18 at 18:00 Miscellaneous Information 1 ea NOTE XX ; Start 09/18/18 at 16:00 Glucose (Glutose) 15 gm Q15M PRN PO DECREASED GLUCOSE Last administered on 09/21/18at 08:51; Admin Dose 15 GM; Start 09/18/18 at 16:00 Glucose (Glutose) 22.5 gm Q15M PRN PO DECREASED GLUCOSE; Start 09/18/18 at 16:00 Dextrose (D50w Syringe) 25 ml Q15M PRN IV DECREASED GLUCOSE; Start 09/18/18 at 16:00 Dextrose (D50w Syringe) 50 ml Q15M PRN IV DECREASED GLUCOSE; Start 09/18/18 at 16:00 Glucagon (Glucagen) 1 mg Q15M PRN IM DECREASED GLUCOSE Last administered on 09/20/18at 18:48; Admin Dose 1 MG; Start 09/18/18 at 16:00 Glucose (Glutose) 15 gm Q15M PRN BUCCAL DECREASED GLUCOSE; Start 09/18/18 at 16:00 Sevelamer Carbonate (Renvela) 800 mg TID PO Last administered on 09/25/18at 12:23; Admin Dose 800 MG; Start 09/18/18 at 21:45 Morphine Sulfate (morphine) 6 mg Q4H PRN PO SEVERE PAIN LEVEL 7-10 Last administered on 09/19/18at 17:51; Admin Dose 6 MG; Start 09/18/18 at 23:00 Gabapentin (Neurontin) 100 mg HS PO Last administered on 09/24/18at 20:52; Admin Dose 100 MG; Start 09/19/18 at 21:00 Acetaminophen/ Hydrocodone Bitart ([place] (10/325)) 1 tab Q3 PRN PO MODERATE PAIN LEVEL 4-6 Last administered on 09/24/18at 03:59; Admin Dose 1 TAB; Start 09/19/18 at 13:00 Senna/Docusate Sodium (Senokot-S) 2 tab HS PO Last administered on 09/24/18at 20:52; Admin Dose 2 TAB; Start 09/19/18 at 21:00 Bisacodyl (Dulcolax Supp) 10 mg Q48H PRN [place] CONSTIPATION; Start 09/19/18 at 13:00 Polyethylene Glycol (Miralax) 17 gm BID PO Last administered on 09/25/18at 08:17; Admin Dose 17 GM; Start 09/19/18 at 13:00 Nystatin (Nystatin Powder) 1 applic BID TOP Last administered on 09/25/18at 0 8:18; Admin Dose 1 APPLIC; Start 09/20/18 at 14:00 Albumin Human 50 ml @ 100 mls/hr DURING DIALYSIS PRN IV hypotension during hd; Start 09/21/18 at 20:30 Epoetin Jalen (Epogen (Esrd)) 3,000 units MoWeFr@17 SC Last administered on 09/24/18at 18:22; Admin Dose 3,000 UNITS; Start 09/22/18 at 17:00 Aspirin (Aspirin) 81 mg DAILY PO Last administered on 09/25/18at 08:17; Admin Dose 81 MG; Start 09/24/18 at 05:00 Lactulose (Enulose) 10 gm QPM PRN PO CONSTIPATION; Start 09/24/18 at 05:00 Norepinephrine 16 mg/Dextrose 500 ml @ 1.88 mls/hr TITRATE IV ; Start 09/24/18 at 16:30 LILLIAN ONEIL MD Sep 25, 2018 14:43
--- NOTE | 2018-09-25 19:10 | NUR ---
EOSS BP better, verbalized discomfort on back and on stump when moved--> declined pain meds --> repositioned with relief. HD tolerated by pt.
[2018-09-25] MEDS: SENNA/DOCUSATE NA (8.6MG/50MG) TAB PO SCH (20:49)
[2018-09-25] MEDS: ATORVASTATIN 20 MG TAB PO SCH (20:49)
[2018-09-25] MEDS: GABAPENTIN 100 MG CAP PO SCH (20:49)
[2018-09-26] VITALS (11 sets, daily range): BP systolic 85–152; BP diastolic 44–80; PULSE 67–89; RESP 15–22
[2018-09-26] MEDS: ACCU-CHEK XX SCH (02:00)
--- NOTE | 2018-09-26 04:32 | NUR ---
TRANSFER: PT SAFELY TRANSFERRED TO ROOM 512B WITH RN. VSS, NO SIGNS OF DISTRESS. DAUGHTER AT BEDSIDE. NO BELONGINGS LEFT IN ROOM. ALL MEDICATIONS WITH PATIENT.
[2018-09-26] MEDS: PANTOPRAZOLE (EC) 40 MG TAB PO SCH (06:32)
--- NOTE | 2018-09-26 06:55 | NUR ---
EOSS Py AAO x4. No s/s of respiratory distress, pain or discomfort at this time. Performed wound care to right stump and sacrum. No acute changes
[2018-09-26] MEDS: INSULIN ASPART [NOVOLOG] 3 ML PEN SC SCH ×2 (07:55→11:50)
[2018-09-26] MEDS: SEVELAMER CARBONATE 800 MG TABLET PO SCH ×2 (08:29→12:31)
[2018-09-26] MEDS: POLYETHYLENE GLYCOL 17 GM PACKET PO SCH (08:29)
[2018-09-26] MEDS: NYSTATIN 30 GM POWDER BTL TOP SCH (08:30)
[2018-09-26] MEDS: BALSAM PERU/CASTOR OIL 60 GM TUBE TOP SCH (08:30)
[2018-09-26] MEDS: ASPIRIN 81 MG TAB PO SCH (08:30)
--- NOTE | 2018-09-26 10:12 | NUR ---
WOUND CONSULT FOR RE-EVALUATION OF SACROCOCCOYX WOUND: 88 year old female s/p right BKA by Dr. Vanessa on 09/18/18. History of end-stage renal disease on hemodialysis, diabetes mellitus, peripheral arterial disease, gangrene of the right foot per medical history. On 09/24/18, patient had an episode of unresponsiveness few minutes after the patient was given [place]. CODE BLUE was activated, patient never lost her pulse, and Narcan was given. WBC 4.9. H&H 7.8/25.2. Plt 160. Albumin 2.2. Dietitian on case. Patient awake, alert. Nasal cannula. Moderate assist to turn. Anuria. Incontinent of bowel. ASSESSMENT: - Sacrococcyx stage 3 pressure injury evolved from present on admission intact deep tissue pressure injury. Total area measured 5cmx8.5cmx0.2cm. Shallow full thickness wound with visible pale yellow subcutaneous tissue. Periwound purple discoloration and pinkish resurfaced scar tissue. Scant serosanguineous drainage. No odor. Area including present on admission pinkish resurfaced scar tissue area to the Right buttock area. - Right BKA wrap with Kerlix. Dressing dry, clean, and intact. - Left heel dry peeling skin. RECOMMENDATIONS: - Sacrococcyx Stage 3 pressure injury: Cleanse with normal saline. Pat dry. Apply Santyl ointment to open wound daily. Then, apply Venelex ointment to periwound area. Then, cover with foam border dressing. - Left heel: Apply moisturizer daily. Float heel off bed with pillow. - Pericare with barrier cream for each incontinent episode. - Low air loss surface. - Reposition every 2 hours. - Earmates foam farm reporter for nasal cannula for ear protection. Patient's daughter, Ruma, at bedside. Notified patient's daughter regarding change of pressure injury condition and explained treatment plan of care. She verbalized understanding and have no question at this time. Assessed patient with Daniella MORENO. Discussed plan of care with RN. RN to obtain wound care recommendations from . Beverley Mahan BSN RN CWOCN
--- NOTE | 2018-09-26 10:49 | CONS ---
Date/Time of Note Date/Time of Note DATE: 09/26/18 TIME: 10:48 Assessment/Plan Assessment/Plan Hospital Course 88 yo Female with 1)RLE PVD, Recent Rt Toe gangrene S/p Transection, S/p BKA 2)ESRD on HD TTS 3)Hyperkalemia 4) DM with Renal complication, CKD ESRD 5) Anemia, CKD 6) MBD CKD 7) Chronic HTN 8) CAD, CHF Chronic 9) Hypotension, Resolved HD plan for tomorrow BP improved, Stable Dr Ng will be covering and seeing over weekend. Thank you for the opportunity to participate in the care of Ms Phuc Valentin. Result Diagram: 09/26/18 0553 09/26/18 0553 Results 24hrs Laboratory Tests Test 09/25/18 11:42 09/25/18 17:37 09/25/18 18:47 09/25/18 20:51 Bedside Glucose 117 113 105 144 Test 09/26/18 02:05 09/26/18 05:53 09/26/18 08:00 Bedside Glucose 115 101 White Blood 4.9 Count Red Blood Count 3.08 L Hemoglobin 7.8 L Hematocrit 25.2 L Mean Corpuscular 81.8 L Volume Mean Corpuscular 25.3 L Hemoglobin Mean Corpuscular 31.0 L Hemoglobin Lucia nt Red Cell 18.6 H Distribution Width Platelet Count 160 Mean Platelet 11.2 H Volume Immature 0.400 Granulocytes % Neutrophils % 65.2 Lymphocytes % 19.8 Monocytes % 13.4 H Eosinophils % 1.0 Basophils % 0.2 Nucleated Red 0.0 Blood Cells % Immature 0.020 Granulocytes # Neutrophils # 3.2 Lymphocytes # 1.0 Monocytes # 0.7 Eosinophils # 0.1 Basophils # 0.0 Nucleated Red 0.0 Blood Cells # Sodium Level 132 L Potassium Level 4.6 Chloride Level 98 Carbon Dioxide 31 Level Anion Gap 3 L Blood Urea 15 Nitrogen Creatinine 2.04 H Est Glomerular Filtrat Rate mL/min Glucose Level 107 # Calcium Level 8.0 L Phosphorus Level 2.3 L Magnesium Level 2.2 Consultation Date/Type/Reason Admit Date/Time Sep 18, 2018 at 10:31 Initial Consult Date 09/18/18 Type of Consult Renal Requesting Provider: MICHELLE CARD MD 24 HR Interval Summary Free Text/Dictation S/p HD yesterday, Transferred out of ICU, No new complaints Constitutional: requiring O2 Exam/Review of Systems Vital Signs Vitals Vital Signs Date Temp Pulse Resp B/P (MAP) Pulse Ox O2 O2 Flow FiO2 Time Delivery Rate 09/26/18 71 08:12 09/26/18 Nasal 2.0 08:00 Cannula 09/26/18 98.6 18 104/51 97 07:28 (68) Intake and Output 09/25/18 09/25/18 09/26/18 1515:00 23:00 07:00 IntakeIntake Total 600 ml 150 ml 0 ml OutputOutput Total 0 ml 1400 ml 0 ml BalanceBalance 600 ml -1250 ml 0 ml Exam Constitutional: frail; No distress ENMT: mucosa pink and moist Neck: No jvd Respiratory: No diminished breath sounds, No labored breathing Cardiovascular: regular rate and rhythm; No edema Gastrointestinal: soft Neurological: lethargic; No confused Skin: No diaphoresis Medications Medications Current Medications IV Flush (NS 3 ml) 3 ml PER PROTOCOL IV ; Start 09/18/18 at 16:00 Ondansetron HCl (Zofran Inj) 4 mg Q6H PRN IV NAUSEA AND/OR VOMITING Last administered on 09/19/18at 09:10; Admin Dose 4 MG; Start 09/18/18 at 16:00 Acetaminophen (Tylenol Tab) 650 mg Q6H PRN PO PAIN LEVEL 1-3 OR FEVER; Start 09/18/18 at 16:00 Atorvastatin Calcium (Lipitor) 20 mg QHS PO Last administered on 09/25/18at 20:49; Admin Dose 20 MG; Start 09/18/18 at 21:00 Docusate Sodium (Colace) 100 mg TID PRN PO CONSTIPATION Last administered on 09/19/18at 06:08; Admin Dose 100 MG; Start 09/18/18 at 16:00 Pantoprazole (Protonix Tab) 40 mg AC BREAKFAST PO Last administered on 09/26/18at 06:32; Admin Dose 40 MG; Start 09/19/18 at 07:00 Diagnostic Test (Pha) (Accu-Chek) 1 ea 02 XX ; Start 09/19/18 at 02:00 Insulin Aspart (Novolog Insulin Pen) NOVOLOG *MILD* ALGORITHM WITH MEALS BEDTIME SC Last administered on 09/24/18at 17:49; Admin Dose 1 UNIT; Start 09/18/18 at 18:00 Miscellaneous Information 1 ea NOTE XX ; Start 09/18/18 at 16:00 Glucose (Glutose) 15 gm Q15M PRN PO DECREASED GLUCOSE Last administered on 09/21/18at 08:51; Admin Dose 15 GM; Start 09/18/18 at 16:00 Glucose (Glutose) 22.5 gm Q15M PRN PO DECREASED GLUCOSE; Start 09/18/18 at 16:00 Dextrose (D50w Syringe) 25 ml Q15M PRN IV DECREASED GLUCOSE; Start 09/18/18 at 16:00 Dextrose (D50w Syringe) 50 ml Q15M PRN IV DECREASED GLUCOSE; Start 09/18/18 at 16:00 Glucagon (Glucagen) 1 mg Q15M PRN IM DECREASED GLUCOSE Last administered on 09/20/18at 18:48; Admin Dose 1 MG; Start 09/18/18 at 16:00 Glucose (Glutose) 15 gm Q15M PRN BUCCAL DECREASED GLUCOSE; Start 09/18/18 at 16:00 Sevelamer Carbonate (Renvela) 800 mg TID PO Last administered on 09/26/18at 08:29; Admin Dose 800 MG; Start 09/18/18 at 21:45 Morphine Sulfate (morphine) 6 mg Q4H PRN PO SEVERE PAIN LEVEL 7-10 Last administered on 09/19/18at 17:51; Admin Dose 6 MG; Start 09/18/18 at 23:00 Gabapentin (Neurontin) 100 mg HS PO Last administered on 09/25/18at 20:49; Admin Dose 100 MG; Start 09/19/18 at 21:00 Acetaminophen/ Hydrocodone Bitart ([place] (10/325)) 1 tab Q3 PRN PO MODERATE PAIN LEVEL 4-6 Last administered on 09/24/18at 03:59; Admin Dose 1 TAB; Start 09/19/18 at 13:00 Senna/Docusate Sodium (Senokot-S) 2 tab HS PO Last administered on 09/25/18at 20:49; Admin Dose 2 TAB; Start 09/19/18 at 21:00 Bisacodyl (Dulcolax Supp) 10 mg Q48H PRN [place] CONSTIPATION; Start 09/19/18 at 13:00 Polyethylene Glycol (Miralax) 17 gm BID PO Last administered on 09/26/18at 08:29; Admin Dose 17 GM; Start 09/19/18 at 13:00 Nystatin (Nystatin Powder) 1 applic BID TOP Last administered on 09/26/18 08:30; Admin Dose 1 APPLIC; Start 09/20/18 at 14:00 Albumin Human 50 ml @ 100 mls/hr DURING DIALYSIS PRN IV hypotension during hd; Start 09/21/18 at 20:30 Epoetin Jalen (Epogen (Esrd)) 3,000 units MoWeFr@17 SC Last administered on 09/24/18at 18:22; Admin Dose 3,000 UNITS; Start 09/22/18 at 17:00 Aspirin (Aspirin) 81 mg DAILY PO Last administered on 09/26/18 08:30; Admin Dose 81 MG; Start 09/24/18 at 05:00 Lactulose (Enulose) 10 gm QPM PRN PO CONSTIPATION; Start 09/24/18 at 05:00 LILLIAN ONEIL MD Sep 26, 2018 10:49
--- NOTE | 2018-09-26 11:23 | NUR ---
CALLED [facility] FOR HEMODIALYSIS TOMORROW, 09/27 AT 0600. CONFIRMATION # [id number].
--- NOTE | 2018-09-26 12:06 | RADRPT ---
Vent Rate: 69 bpm RR Interval: 0 msec MS Interval: 144 msec QRS Duration: 170 msec QT Interval: 472 msec QTC Interval: 505 msec P-R-T [place]: 6 - -67 - 102 degrees Electronic ventricular pacemaker Electronically Signed By: Kane Diego [id number]
--- NOTE | 2018-09-26 13:26 | PDOCDIS ---
Discharge Instructions CONDITION [id number] Patient Condition: [id number] Stable HOME CARE INSTRUCTIONS: [id number] Special Diet: [id number] Renal soft FOLLOW UP/APPOINTMENTS Follow-up Plan Otf Rapp, Aaron Starks MD Specialty Vascular Surgery Office Address [facility] [address] [place] [address] Office OTHER ORDERS: Other Orders: 1. Resume home medications except insulin. 2. Follow-up with vascular surgery (Dr. Vanessa) in 1 week. 3. Take a low potassium diet. 4. Follow-up with your hemodialysis clinic as scheduled. CASS OLIVER NP Sep 26, 2018 13:26
--- NOTE | 2018-09-26 14:09 | NUR ---
Discharge arrangements; Patient's home health arranged through [facility] , spoke with Evan and confirmed they will be able to continue previous home health services. Further sent over clinical reports to Patient's hemodialysis center: [facility] , faxed reports to . Spoke with Nelli and confirmed patient's appointment tomorrow 09/27/18 at 0830, with Family to arrange transportation. They are expecting her tomorrow as such will follow through with discharge plan of care. Addendum: 09/26/18 at 1442 by RENALDO OTT RN Ambulance arrangements; Arranged ambulance transport with [facility] , set on will call and can activate picker/puller with trip#[id number].
--- NOTE | 2018-09-26 15:50 | DS ---
Date/Time of Note Date/Time of Note DATE: 09/26/18 TIME: 15:50 Discharge Summary Admission/Discharge Info Admit Date/Time Sep 18, 2018 at 10:31 Discharge Date/Time Discharge Diagnosis 1. Peripheral artery disease with right foot gangrene. 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 2. End-stage renal disease on hemodialysis 3. Diabetes mellitus. Hemoglobin A1c 4.7. 4. Microcytic, hypochromic anemia. 5. Dyslipidemia. 6. Severe pulmonary hypertension. RVSP of 85 mmHg. 7. Mild to moderate aortic stenosis. 8. Permanent pacemaker status. Patient Condition: Stable Consults 1. Aaron Vanessa MD, Vascular Surgery. 2. Horacio Albert MD, Nephrology. 3. Zafar Xiao MD, Nephrology. Procedures OPERATIVE REPORT DATE OF OPERATION: 09/18/2018 PREOPERATIVE DIAGNOSIS: Right foot gangrene. POSTOPERATIVE DIAGNOSIS: Right foot gangrene. PROCEDURE PERFORMED: Right below-knee amputation. SURGEON: Aaron Vanessa MD ANESTHESIA: Regional block. ESTIMATED BLOOD LOSS: 50 mL. COMPLICATIONS: There are no intraprocedural complications. Brain CT IMPRESSION: 1. No acute intracranial abnormality. 2. Generalized volume loss, atherosclerosis, moderate chronic small vessel ischemic changes. 3. Left maxillary sinus mucosal thickening compatible with inflammatory sinusitis. Partial opacification of the left mastoid air cells. 2D Echocardiogram Conclusions The left ventricle is normal in size and systolic function. Estimated left ventricular ejection fraction of 55%. Moderate concentric left ventricular hypertrophy. Grade 1 diastolic dysfunction. Moderate mitral stenosis. Mild to moderate aortic stenosis. Moderate left atrial enlargement. Severe pulmonary hypertension with estimated RVSP of 85 mmHg. Hx of Present Illness This is a 88-year-old female with past medical history of end-stage renal disease on hemodialysis, diabetes mellitus, peripheral artery disease, as well as gangrene of the right foot who was brought to [facility]. The patient underwent a right below-knee amputation on 09/18/2018. The patient was admitted to inpatient setting for further monitoring. Hospital Course The patient had the right below-knee amputation on 09/18/2018. The patient was provided with adequate pain control. Local dressing changes were done as per vascular surgery. Nephrology was following the patient since patient has underlying end-stage renal disease and was continued on hemodialysis. The patient gets hemodialysis on Tuesdays, , and Saturdays. The patient had episodes of hyperkalemia that was treated with ultrafiltration. The patient's chronic problems also include diabetes mellitus. The patient's hemoglobin A1c was noted to be 4.7. She was maintained on sliding scale insulin. Upon discharge the patient's insulin will be discontinued since the patient has evidence of burned out diabetes mellitus. The patient has underlying microcytic, hypochromic anemia secondary to chronic kidney disease. The patient has underlying dyslipidemia. She was maintained on statins for the same. The patient also has evidence of mild to moderate aortic stenosis and severe pulmonary hypertension evident on a 2D echocardiogram. The patient also has a pacemaker in place with details unclear. The patient's cardiac rhythm remained stable. She had an episode of hypotension and unresponsiveness on a 09/24/2018. On 09/24/2018, the patient was noted to be unresponsive, therefore the nocturnal hospitalist was called and unresponsiveness was reversed with IV Narcan. The patient underwent a brain CT scan that was negative for any acute findings. The patient also had hypotensive episodes on 09/24/2018 that necessitated transferring the patient to intensive care unit for possible IV pressors. However, these were falsely low readings because of taking her blood pressure only on the left lower extremity (patient who has peripheral vascular disease). The patient had a relatively long hospital course. The patient was evaluated by physical therapy and physical therapy recommended group home facility placement. However the patient's family refused group home facility placement. Therefore, case management order was put in for home health for this patient. Therefore, the patient will be discharged home with home health. The patient also had an episode of lactic acidosis on 09/24/2018. However, the patient did not have any evidence of any infectious process. The patient had no evidence of any stump infection. Discharge Instructions 1. Resume home medications except insulin. 2. Follow-up with vascular surgery (Dr. Vanessa) in 1 week. 3. Take a low potassium diet. 4. Follow-up with your hemodialysis clinic as scheduled. The patient's family verbalized understanding of the discharge instructions. At this time I would like to thank all the consultants for seeing the patient, doing the necessary procedures, and providing clinical recommendations. The patient was seen in collaboration with Dr. Bryant. Home Meds Reported Medications Folic Acid/Vitamin B Comp W-C (Renal Multivitamin Tablet) 0.8 Mg Tablet, 0.8 MG PO DAILY, TAB 09/18/18 Pantoprazole* (Pantoprazole*) 40 Mg Tablet.dr, 40 MG PO AC BREAKFAST, TAB 09/18/18 Lactulose* (Lactulose*) 10 Gm/15 Ml Solution, 10 GM PO QPM PRN for CONSTIPATION, ML 09/18/18 Mather-3 Fatty Acids/Fish Oil (Fish Oil 1,000 mg Capsule) 1 Each Capsule, 1 EACH PO BID, CAP 09/18/18 Docusate Sodium* (Colace*) 100 Mg Capsule, 100 MG PO TID PRN for CONSTIPATION, #60 CAP 09/18/18 Atorvastatin Calcium* (Atorvastatin Calcium*) 20 Mg Tablet, 20 MG PO QHS, #30 TAB 09/18/18 Aspirin (Aspirin) 81 Mg Chew, 81 MG PO DAILY, TAB.CHEW 01/06/16 Sevelamer Hcl* (Renagel*) 800 Mg Tablet, 800 MG PO TID 11/12/11 Discontinued Reported Medications Insulin Degludec (Tresiba Flextouch U-100) 100 Unit/1 Ml Insuln.pen, 16 UNIT SQ QAM 09/18/18 Follow-up Plan Aaron Vanessa Jr, MD Specialty Vascular Surgery Office Address [facility] [address] [facility] [place] [address] Office Primary Care Provider Avel Zapata MD Time spent on discharge: > 30 minutes Pending Labs Laboratory Tests Test 09/25/18 17:37 09/25/18 18:47 09/25/18 20:51 09/26/18 02:05 Bedside 113 105 144 115 Glucose mg/dL (70-220) mg/dL (70-220) mg/dL (70-220) mg/dL (70-220) Test 09/26/18 05:53 09/26/18 08:00 09/26/18 12:06 White Blood 4.9 Count 10^3/ul (4.8-10 .8) Red Blood 3.08 Count 10^6/ul (4.20-5 .40) Hemoglobin 7.8 g/dl (12.0-16.0 ) Hematocrit 25.2 % (37.0-47.0) Mean 81.8 Corpuscular fl (82.0-101.0) Volume Mean 25.3 Corpuscular pg (29.0-33.0) Hemoglobin Mean 31.0 Corpuscular g/dl (32.0-37.0 Hemoglobin Conc ) ent Red Cell 18.6 Distribution % (11.5-14.5) Width Platelet Count 160 10^3/UL (140-41 5) Mean Platelet 11.2 Volume fl (7.4-10.4) Immature 0.400 Granulocytes % % (0.001-0.429) Neutrophils % 65.2 % (39.0-77.0) Lymphocytes % 19.8 % (15.0-51.0) Monocytes % 13.4 % (0.0-11.0) Eosinophils % 1.0 % (0.0-7.0) Basophils % 0.2 % (0.0-2.0) Nucleated Red 0.0 Blood Cells % /100WBC (0.0-0. 0) Immature 0.020 Granulocytes # 10^3/ul (0.0-0. 031) Neutrophils # 3.2 10^3/ul (1.6-7. 5) Lymphocytes # 1.0 10^3/ul (0.8-2. 9) Monocytes # 0.7 10^3/ul (0.3-0. 9) Eosinophils # 0.1 10^3/ul (0.0-0. 5) Basophils # 0.0 10^3/ul (0.0-0. 1) Nucleated Red 0.0 Blood Cells # 10^3/ul (0.0-0. 0) Sodium Level 132 mmol/L (135-144 ) Potassium 4.6 Level mmol/L (3.5-5.1 ) Chloride Level 98 mmol/L (97-110) Carbon Dioxide 31 Level mmol/L (21-31) Anion Gap 3 (5-13) Blood Urea 15 mg/dl (7-20) Nitrogen Creatinine 2.04 mg/dl (0.44-1.0 0) Est Glomerular mL/min (>60) Filtrat Rate mL/min Glucose Level 107 mg/dl (70-220) Calcium Level 8.0 mg/dl (8.4-10.2 ) Phosphorus 2.3 Level mg/dl (2.5-4.9) Magnesium 2.2 Level mg/dl (1.7-2.5) Bedside 101 137 Glucose mg/dL (70-220) mg/dL (70-220) CASS OLIVER NP Sep 26, 2018 15:50
[2018-09-26] MEDS: EPOETIN 3000 UNITS/1 ML INJ (ESRD) SC SCH (18:03)
--- NOTE | 2018-09-26 18:06 | NUR ---
Discharged to home via ambulance. No new complaints. VSS. Report given to EMS. Discharge instructions reviewed with daughter and family earlier. They all verbalized understanding. Copies provided.
== END 2018-09-26 18:25 | disposition home health service (06) | DRG 239 ==
LOC: REC 10:31 → MS1 18:53 → TEL 09-24 04:54 → ICU 09-24 15:35 → TEL 09-26 03:58
PROVIDERS: ADMIT Surgery Vascular Surgery; ATTEND Internal Medicine
PROC: 0Y6H0Z1 Detachment at Right Lower Leg, High, Open Approach (ICD-10-PCS; principal; 2018-09-18 13:30)
PROC: 5A1D70Z Performance of Urinary Filtration, Intermittent, Less than 6 Hours Per Day (ICD-10-PCS; 2018-09-21)
DX: E11.52 Type 2 diabetes mellitus with diabetic peripheral angiopathy with gangrene (principal); N18.6 End stage renal disease; I70.261 Atherosclerosis of native arteries of extremities with gangrene, right leg; I13.2 Hypertensive heart and chronic kidney disease with heart failure and with stage 5 chronic kidney disease, or end stage renal disease; E87.2 Acidosis; E87.1 Hypo-osmolality and hyponatremia; Z79.4 Long term (current) use of insulin; E11.22 Type 2 diabetes mellitus with diabetic chronic kidney disease; I50.9 Heart failure, unspecified; Z99.2 Dependence on renal dialysis; E87.5 Hyperkalemia; D63.1 Anemia in chronic kidney disease; I25.10 Atherosclerotic heart disease of native coronary artery without angina pectoris; D69.6 Thrombocytopenia, unspecified; R62.7 Adult failure to thrive; Z89.421 Acquired absence of other right toe(s); K59.00 Constipation, unspecified; E11.649 Type 2 diabetes mellitus with hypoglycemia without coma; E83.9 Disorder of mineral metabolism, unspecified; Z68.27 Body mass index [BMI] 27.0-27.9, adult; I27.20 Pulmonary hypertension, unspecified; I35.0 Nonrheumatic aortic (valve) stenosis; Z95.0 Presence of cardiac pacemaker; I95.9 Hypotension, unspecified
CPT/HCPCS: 36600; 70450; 71045; 80048; 80053; 82306; 82550; 82553; 82803; 82962; 83036; 83605; 83735; 84100; 84132; 84439; 84443; 84480; 84484; 85025; 85610; 85730; 87040; 87340; 88307; 88311; 90935; 92526; 92610; 93005; 93306; 97163; J0690; J0886; J1610; J1815; J2270; J2310; J2405; J2795; J3010; J7040; J7042; J7060; L5400; L5684; L5690; L5910; L8400; L8440; P9047